=== PATIENT | male | born 1940 | race African-American/Black ===

== ENCOUNTER 2017-07-25 12:00 | Inpatient (IN) | payer OTHER ==
[~2017-07-25] VITALS: Ht 182.9 cm; Wt 87.0 kg
[2017-07-25] VITALS (17 sets, daily range): BP systolic 76–118; BP diastolic 38–67
--- NOTE | ~2017-07-25 | HC ---
[facility] [place] [address] CONSULTATION Name: SAI REGALADO Room #: 246-P [facility] IN M.R.#: [id number] Admission: 07/25/17 Attend Phys: Nabeel Mae Discharge: Date of : 38 Report #: [id number] THIS REPORT FOR: //name// CC: FAM unknown Nabeel Mae TYPE OF REPORT: Infectious disease consultation. REASON FOR CONSULTATION: I was asked to evaluate concerning left pyelonephritis. HISTORY OF PRESENT ILLNESS: The patient was a 77-year old who presented to the Emergency Room with lower back pain. He does have an ileal conduit. Has a nephrostomy tube that is longstanding since January of 2009 after surgery for bladder cancer. At that time, he had an ileal conduit placed. On presentation, he had sepsis with hypotension, required 3 liters of normal saline resuscitation. His left nephrostomy tube was changed by Interventional Radiology. He is now in the Intensive Care Unit, alert and cooperative. He still has some abdominal discomfort but feels better than he did prior to coming in. REVIEW OF SYSTEMS: He has had some right-sided discomfort, cough, loose stool for 3 days. ALLERGIES: TERAZOSIN and TESTOSTERONE. MEDICATIONS: As noted on his MAR, which were reviewed. He did receive a dose of vancomycin, Zosyn and Levaquin in the Emergency Room. PAST MEDICAL HISTORY: Hyperlipidemia, hypertension, seizure disorder, hypothyroidism, gastroesophageal reflux, COPD, bladder cancer, rheumatoid arthritis, hypogonadism, prostatectomy, right total shoulder arthroplasty, appendectomy, left nephrostomy and urostomy. FAMILY HISTORY: Noncontributory. SOCIAL HISTORY: Smoker of cigarettes. No significant alcohol intake. REVIEW OF SYSTEMS: Noted above. PHYSICAL EXAMINATION: VITAL SIGNS: Temperature is 100.7, pulse 58, blood pressure 100/56, MAP of 70 and O2 at 2 liters per nasal cannula. Urine output more than 50 mL an hour. HEENT: Hard of hearing, greatest on the left. NECK: Supple. LUNGS: Clear. HEART: Regular. [facility] [address] [place] [address] CONSULTATION Name: [facility] Room #: [address] [place] [address] IN .R.#: [id number] Admission: 07/25/17 Attend Phys: Nabeel Mae Discharge: Date of : 38 Report #: [id number] ABDOMEN: Soft with unremarkable urostomy and clear urine. Left nephrostomy tube in place with small amount of urine in the bag. EXTREMITIES: Unremarkable. LABORATORY STUDIES: Hemoglobin 9.2; WBC 15 and platelet count 253,000. Sodium 143, potassium 4.1, bicarbonate 28 and creatinine 1.2. Differential unremarkable. Lactate 0.8 and prolactin 0.05. Urinalysis, moderate wbc's, moderate rbc's and no bacteria seen. I do not have a culture from the left nephrostomy from the left kidney collecting duct. Blood cultures are pending. Urine culture pending. IMPRESSION AND RECOMMENDATIONS: A 77-year old with septic shock related to infected left nephrostomy tube. He has responded to IV fluids. Renal function remained stable. He has a leukocytosis. Mental status has stabilized. He has underlying bladder cancer, status post prostatectomy and bladder resection with a urostomy in place. We would recommend continuing broad antibiotic coverage, pending cultures. Continue IV fluids and full support. <ELECTRONICALLY SIGNED> By: Rafa Jimenes MD 07/26/17 1015 2056 2256 Rafa Jimenes MD /nt
[~2017-07-25 12:00] MED LIST: ACETAMINOPHEN-1 EAC1 PO; ALENDRONATE SOD70 MG PO; ASPIR 8181 MG PO; CALICUM 500+D1 EACH PO; CARVEDILOL12.5 MG PO; COREG6.25 MG PO; CORTISONE ACETA25 MG PO; HYDROCORTISONE PO; KEPPRA 500 MG500 M2 PO; KRISTALOSE10 GM PO; LASIX 20 MG TAB20 MG PO; LEVOTHYROXIN0.075 MG PO; LISINOPRIL2.5 MG PO; NEURONTIN 300300 M1 PO; OMEPRAZOLE 20 M20 M1 PO; OMEPRAZOLE40 MG PO; PROAIR HFA8.5 GM INH; TESTOSTERONE2.5 GM TOP
[2017-07-25 13:00] LABS: ABSOLUTE NEUTROPHILS 8.9 thou/uL (1.4-8.2); BASOPHILS 0.2 % (0.0-2.0); EOSINOPHILS 0.7 % (0.0-3.0); HEMATOCRIT 30.7 % (42.0-52.0); HEMOGLOBIN 10.5 gm/dL (14.0-18.0); MCH 27.5 pg (26.0-34.0); MCV 80.9 fL (80.0-100.0); PLATELET COUNT 292 thou/uL (150-400); POLYS 68.1 % (36.0-66.0); RBC 3.79 mil/uL (4.50-6.00); RDW 15.6 % (10.5-14.5); WBC 13.1 thou/uL (4.0-11.0)
[2017-07-25 13:01] LABS: MANUAL DIFF NO
[2017-07-25 13:11] LABS: CALCIUM 8.5 mg/dL (8.5-10.1); CREATININE 1.3 mg/dL (0.7-1.3); POTASSIUM 3.5 mmol/L (3.5-5.1)
[2017-07-25 13:13] LABS: URINE BILIRUBIN 2+ (Negative); URINE BLOOD 3+ (Negative); URINE GLUCOSE-RANDOM* NEGATIVE (Negative); URINE KETONES NEGATIVE (Negative); URINE NITRITE POSITIVE (Negative); URINE SPECIFIC GRAVITY 1.015 (1.005-1.035); URINE UROBILINOGEN 0.2 E.U./dl (0.2-1.0)
[2017-07-25 13:17] LABS: URINE COLOR BROWN
[2017-07-25 13:18] LABS: ICTOTEST (BILI CONFIRMATORY) Positive (Negative)
[2017-07-25 13:19] LABS: ALBUMIN 2.8 g/dL (3.4-5.0); TOTAL BILIRUBIN 0.5 mg/dL (<0.1-1.0); TOTAL PROTEIN 6.4 g/dL (6.4-8.2)
[2017-07-25 13:22] LABS: CASTS None Seen /LPF (None Seen); CRYSTALS None Seen /LPF (None Seen); SQUAMOUS 0-3 Few /LPF (0-3); TRANSITIONAL EPITHEL CELL 0-3 Few /LPF (None Seen)
[2017-07-25 13:23] LABS: BACTERIA None Seen /HPF (None Seen)
[2017-07-25 13:24] LABS: SSA (PROTEIN CONFIRMATORY) 3+ (APPROX. 200-500) mg/dL (Negative); URINE PROTEIN (DIPSTICK) 3+ (Negative)
[2017-07-25 14:26] LABS: APTT 37.5 Seconds (24.5-32.8); INR 1.1
[2017-07-25 19:37] LABS: ABSOLUTE NEUTROPHILS 12.2 thou/uL (1.4-8.2); BASOPHILS 0.4 % (0.0-2.0); EOSINOPHILS 0.2 % (0.0-3.0); HEMATOCRIT 29.7 % (42.0-52.0); HEMOGLOBIN 9.8 gm/dL (14.0-18.0); LYMPHOCYTES 15.7 % (24.0-44.0); MCH 27.1 pg (26.0-34.0); MONOCYTES 6.3 % (1.0-8.0); PLATELET COUNT 293 thou/uL (150-400); POLYS 77.4 % (36.0-66.0); RBC 3.62 mil/uL (4.50-6.00); RDW 15.8 % (10.5-14.5); WBC 15.8 thou/uL (4.0-11.0)
[2017-07-25 19:39] LABS: MANUAL DIFF NO
[2017-07-25 19:40] LABS: CALCIUM 7.4 mg/dL (8.5-10.1); CREATININE 1.2 mg/dL (0.7-1.3); POTASSIUM 4.1 mmol/L (3.5-5.1)
[2017-07-25 20:46] LABS: HEMATOCRIT 26.7 % (42.0-52.0); HEMOGLOBIN 9.2 gm/dL (14.0-18.0); MCH 27.9 pg (26.0-34.0); MCHC 34.3 g/dL (28.0-37.0); MCV 81.3 fL (80.0-100.0); RBC 3.29 mil/uL (4.50-6.00); RDW 15.8 % (10.5-14.5)
[2017-07-25 20:57] LABS: CALCIUM 7.2 mg/dL (8.5-10.1); CREATININE 1.2 mg/dL (0.7-1.3); POTASSIUM 4.2 mmol/L (3.5-5.1)
[2017-07-26] VITALS (10 sets, daily range): BP systolic 115–158; BP diastolic 53–88
[2017-07-26 01:07] LABS: CREATININE 1.1 mg/dL (0.7-1.3)
[2017-07-26 04:13] LABS: ABSOLUTE NEUTROPHILS 9.3 thou/uL (1.4-8.2); BASOPHILS 0.7 % (0.0-2.0); EOSINOPHILS 0.1 % (0.0-3.0); HEMATOCRIT 22.1 % (42.0-52.0); HEMOGLOBIN 7.4 gm/dL (14.0-18.0); LYMPHOCYTES 14.5 % (24.0-44.0); MCH 27.6 pg (26.0-34.0); MCHC 33.7 g/dL (28.0-37.0); MCV 81.9 fL (80.0-100.0); MONOCYTES 2.9 % (1.0-8.0); PLATELET COUNT 210 thou/uL (150-400); POLYS 81.8 % (36.0-66.0); RDW 15.7 % (10.5-14.5); WBC 11.3 thou/uL (4.0-11.0)
[2017-07-26 04:16] LABS: MANUAL DIFF NO
[2017-07-26 04:28] LABS: CREATININE 0.9 mg/dL (0.7-1.3); POTASSIUM 3.3 mmol/L (3.5-5.1)
[2017-07-26 04:33] LABS: CALCIUM 5.8 mg/dL (8.5-10.1)
[2017-07-27 02:33] LABS: HEMATOCRIT 28.1 % (42.0-52.0); MCH 27.2 pg (26.0-34.0); MCHC 33.4 g/dL (28.0-37.0); MCV 81.4 fL (80.0-100.0); RBC 3.45 mil/uL (4.50-6.00); RDW 15.3 % (10.5-14.5); WBC 15.7 thou/uL (4.0-11.0)
[2017-07-27 02:39] LABS: HEMOGLOBIN 9.4 gm/dL (14.0-18.0); MANUAL DIFF YES; PLATELET COUNT 287 thou/uL (150-400)
[2017-07-27 02:48] LABS: ALBUMIN 2.6 g/dL (3.4-5.0); CALCIUM 7.2 mg/dL (8.5-10.1); CREATININE 1.3 mg/dL (0.7-1.3); PHOSPHORUS 2.1 mg/dL (2.5-4.9); POTASSIUM 3.4 mmol/L (3.5-5.1)
[2017-07-27 03:05] VITALS: BP 144/93
[2017-07-27 05:34] LABS: ABSOLUTE NEUTROPHILS 12.6 thou/uL (1.4-8.2); ANISOCYTOSIS 1+; MYELOCYTES 1 %; TARGET CELLS OCCASIONAL; TOTAL CELL COUNT 100
[2017-07-27 08:02] VITALS: BP 152/91
[2017-07-27 15:43] VITALS: BP 142/85
[2017-07-27 19:52] VITALS: BP 117/93
[2017-07-28 04:00] VITALS: BP 133/85
[2017-07-28 07:18] VITALS: BP 128/83
[2017-07-28 11:15] VITALS: BP 128/90
[2017-07-28 15:10] VITALS: BP 133/83
[2017-07-28 19:40] VITALS: BP 128/82
[2017-07-29 04:52] VITALS: BP 138/82
[2017-07-29 05:54] LABS: HEMATOCRIT 24.7 % (42.0-52.0); HEMOGLOBIN 8.5 gm/dL (14.0-18.0); MCH 27.6 pg (26.0-34.0); MCHC 34.3 g/dL (28.0-37.0); MCV 80.4 fL (80.0-100.0); RBC 3.07 mil/uL (4.50-6.00); RDW 15.6 % (10.5-14.5); WBC 9.1 thou/uL (4.0-11.0)
[2017-07-29 06:07] LABS: ALBUMIN 2.3 g/dL (3.4-5.0); CALCIUM 7.3 mg/dL (8.5-10.1); CREATININE 1.3 mg/dL (0.7-1.3); MAGNESIUM 2.1 mg/dL (1.8-2.4); PHOSPHORUS 2.3 mg/dL (2.5-4.9); POTASSIUM 3.1 mmol/L (3.5-5.1)
[2017-07-29 06:41] LABS: TSH 0.087 uIU/mL (0.358-3.740)
[2017-07-29 08:04] VITALS: BP 133/79
[2017-07-29] MEDS ORDERED: LEVAQUIN 500 M500 M2 PO (09:15)
[2017-07-29 10:12] VITALS: BP 133/79
[2017-07-29 14:18] VITALS: BP 133/79
[2017-07-29 22:07] LABS: 25-HYDROXY TOTAL 30.1 ng/mL (30.0-100.0)
== END 2017-07-29 17:16 | disposition home health service (06) | DRG 871 ==
LOC: ER 12:00 → ICU 13:21 → EROBS 13:21 → ICU 15:29 → 2N 07-26 13:09
PROVIDERS: Hospitalist; Physician Assistant; Registered Nurse
PROC: 0T25X0Z Change Drainage Device in Kidney, External Approach (ICD-10-PCS; principal; 2017-07-25)
PROC: 05H933Z Insertion of Infusion Device into Right Brachial Vein, Percutaneous Approach (ICD-10-PCS; 2017-07-25)
DX: A41.9 Sepsis, unspecified organism (principal); R65.21 Severe sepsis with septic shock; J18.9 Pneumonia, unspecified organism; N12 Tubulo-interstitial nephritis, not specified as acute or chronic; F10.231 Alcohol dependence with withdrawal delirium; N39.0 Urinary tract infection, site not specified; E78.5 Hyperlipidemia, unspecified; I10 Essential (primary) hypertension; E03.9 Hypothyroidism, unspecified; K21.9 Gastro-esophageal reflux disease without esophagitis; J44.9 Chronic obstructive pulmonary disease, unspecified; M06.9 Rheumatoid arthritis, unspecified; F17.210 Nicotine dependence, cigarettes, uncomplicated; G40.909 Epilepsy, unspecified, not intractable, without status epilepticus; Z96.611 Presence of right artificial shoulder joint; E86.0 Dehydration; Z74.2 Need for assistance at home and no other household member able to render care; N13.5 Crossing vessel and stricture of ureter without hydronephrosis; Z79.52 Long term (current) use of systemic steroids; Z85.51 Personal history of malignant neoplasm of bladder; Z90.49 Acquired absence of other specified parts of digestive tract; Z93.6 Other artificial openings of urinary tract status; Z88.8 Allergy status to other drugs, medicaments and biological substances
CPT/HCPCS: 10078; 10081; 27000

== ENCOUNTER 2017-08-06 17:57 | Inpatient (IN) | payer OTHER ==
[~2017-08-06] VITALS: Ht 182.9 cm; Wt 83.6 kg
--- NOTE | ~2017-08-06 | HC ---
[facility] [place] [address] CONSULTATION Name: SAI REGALADO Room #: 424-P [facility] IN ..#: [id number] Admission: 08/06/17 Attend Phys: Dustin Chin MD Discharge: Date of : 38 Report #: [id number] THIS REPORT FOR: //name// CC: Zeb Chin DATE OF SERVICE: 08/07/2017 CARDIOLOGY CONSULTATION PRIMARY CARE PHYSICIAN: Dr. Zeb Mckeon in [place], [place]. HISTORY OF PRESENT ILLNESS: The patient is a 77-year-old single black male who I was asked to see in the hospital today after he was noted to have swelling of both feet. The patient is extremely hard of hearing, is difficult to communicate with. There are no family members available. The patient has been followed by my partner, Dr. Hebert. He had a heart catheterization here at [facility] in [address] Avila that showed an ejection fraction of only 25% with minimal coronary artery disease consistent with a nonischemic cardiomyopathy. Recently, he has been followed at the [facility]. He has a history of bladder cancer and had previous removal of his bladder. He has a urinary drain in place. He also has a drain from his left kidney percutaneously. The patient was actually just admitted here to [facility] on 07/25. He complained of abdominal discomfort and back pain. After he was admitted, he underwent extensive evaluation. He was just discharged 10 days ago. He was found to have evidence of pyelonephritis, underwent nephrostomy replacement, was felt to be dehydrated. He eventually was discharged home with home health. He has chronic dyspnea on exertion. He is not very active because of age and rheumatoid arthritis. Recently, he has had increasing swelling of both feet. Yesterday, the home health nurse recommended he go to the Emergency Room to be admitted. He does note some pain in his legs. He has occasional sharp chest pain. He denied any palpitations or recent syncope. PAST MEDICAL HISTORY: Otherwise significant for removal of a pituitary gland tumor at [facility]. He has a history of hypertension, but no history of diabetes. He has had previous shoulder surgery, cataract extraction, rheumatoid arthritis. CURRENT MEDICATIONS: Consists of lisinopril, Lasix, carvedilol, Neurontin, Keppra, cortisone. He is on albuterol inhaler, Synthroid, testosterone, aspirin. ALLERGIES: HE HAS INTOLERANCE TO TERAZOSIN. [facility] [address] [place] [address] CONSULTATION Name: SAI REGALADO Room #: 424-P [facility] IN [facility]#: [id number] Admission: 08/06/17 Attend Phys: Dustin Chin MD Discharge: Date of : 38 Report #: [id number] FAMILY HISTORY: Negative for heart disease. SOCIAL HISTORY: He is . Lives with daughter in [place], [place]. 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 Smokes less than half pack of cigarettes a day. No alcohol abuse. REVIEW OF SYSTEMS: He has had no history of stroke. He does have COPD, he is on chronic oxygen. No history of peptic ulcer. No liver disease. He has rheumatoid arthritis with deformity of his hands. No chronic skin condition. No psychiatric illness. PHYSICAL EXAMINATION: GENERAL: Revealed an elderly, frail-appearing male lying in bed. He appeared in no acute distress. VITAL SIGNS: He had a blood pressure of 120/70, pulse 70, he is afebrile. HEENT: He is anicteric. Conjunctivae pink. Mucous membranes appear moist. NECK: Veins appeared mildly distended. CHEST: ____ decreased breath sounds at the bases. CARDIOVASCULAR: Regular rate and rhythm. No significant murmur. ABDOMEN: Soft. EXTREMITIES: Had pitting edema up to the mid tibial area. Dorsalis pedis pulse could not be palpated. SKIN: Cool and dry. NEUROLOGIC: Nonfocal. LYMPH: No adenopathy. MUSCULOSKELETAL: He had deformity of the metacarpophalangeal joints of both hands consistent with a swan neck deformity. There is no ECG in his chart at this time. His workup in the Emergency Room, sodium is 146, potassium 3.4, BUN 9, creatinine 0.6. His troponin 0.07. BNP 22,168. His white blood cell count 7.0, hemoglobin 10.2. He had an echocardiogram done in August of this year that showed ejection fraction 35% with dilated right atrium and right ventricle, left atrium was dilated, moderate mitral regurgitation. His x-rays last night, he had a portable chest x-ray that showed normal heart size, blunting of the right costophrenic angle. CT scan of the head without contrast done 2 weeks ago showed a mass in the sella. IMPRESSION AND RECOMMENDATIONS: 1. Venous insufficiency. Recommend intravenous diuretics. 2. Previous removal of a pituitary adenoma. 3. Seizures. 4. History of bladder cancer with previous nephrostomy tube. 5. Rheumatoid arthritis. 6. Microcytic anemia. 7. Hard of hearing. [facility] [address] [place] [address] CONSULTATION Name: BLANK,WILL H Room #: 424-P ADM IN M.R.#: [id number] Admission: 08/06/17 Attend Phys: Dustin Chin MD Discharge: Date of : 38 Report #: [id number] 8. Nonischemic cardiomyopathy. The patient is on a beta renuka and HUEY inhibitor. I would recommend adding spironolactone. <ELECTRONICALLY SIGNED> By: Zeb Manzanares MD, FACC 08/09/17 1459 0731 1328 Zeb Manzanares MD, FACC /nt
--- NOTE | ~2017-08-06 | EKG ---
[place] [address] [facility] [place] [address] ELECTROCARDIOGRAM REPORT Name: SAI REGALADO Room #: 424-P ADM IN M.R.#: [id number] Admission: 08/06/17 Attend Phys: Dustin Chin MD Discharge: Date of : 38 Report #: [id number] THIS REPORT FOR: //name// [facility] Test Date: 2017-08-09 Test Time: 12:17:26 Pat Name: SAI REGALADO Department: Room: 424 P Gender: M Parts Cleaner: yaron : 1940 Requested By: Zeb Manzanares Order Number: [id number] MD: Broderick Harris Measurements Intervals [place] Rate: 66 P: 39 AR: 151 QRS: -28 QRSD: 95 T: 199 QT: 540 QTc: 566 Interpretive Statements Sinus rhythm Atrial premature complexes Borderline left axis deviation Abnormal R-wave progression, late transition Abnrm T, consider ischemia, anterolateral lds Prolonged QT interval no previous ECGs available for comparison Electronically Signed On 08-09-2017 14:35:56 CUSTODIAN MANAGER by Broderick Harris [email or web address] <ELECTRONICALLY SIGNED> By: Broderick Harris MD, [facility] 08/09/17 1435 1217 1217 Broderick Harris MD, [facility] /EPI
--- NOTE | ~2017-08-06 | EKG ---
[place] [address] [address] [place] [address] ELECTROCARDIOGRAM REPORT Name: SAI REGALADO Room #: 424-P ADM IN M.R.#: [id number] Admission: 08/06/17 Attend Phys: Dustin Chin MD Discharge: Date of : 38 Report #: [id number] THIS REPORT FOR: //name// [facility] Test Date: 2017-08-08 Test Time: 08:41:07 Pat Name: SAI REGALADO Department: Room: 424 P Gender: M Occupational Therapist'S Assistant: JULIETH : 1940 Requested By: Zeb Manzanares Order Number: [id number] MD: Broderick Harris Measurements Intervals [place] Rate: 53 P: -68 CO: 109 QRS: -20 QRSD: 97 T: 169 QT: 644 QTc: 605 Interpretive Statements Sinus bradycardia ventricular premature complexes Short CO interval Borderline left axis deviation Repol abnrm, prob ischemia, anterolateral lds Prolonged QT interval No previous ECGs available for comparison Electronically Signed On 08-09-2017 14:16:38 B2B OUTSIDE SALES REPRESENTATIVE by Broderick Harris [email or web address] <ELECTRONICALLY SIGNED> By: Broderick Harris MD, [facility] 08/09/17 1416 0841 0841 Broderick Harris MD, [facility] /EPI
--- NOTE | ~2017-08-06 | EKG ---
[place] [address] [facility] [place] [address] ELECTROCARDIOGRAM REPORT Name: SAI REGALADO Room #: 424-P ADM IN M.R.#: [id number] Admission: 08/06/17 Attend Phys: Dustin Chin MD Discharge: Date of : 38 Report #: [id number] THIS REPORT FOR: //name// [facility] ED Test Date: 2017-08-06 Test Time: 18:27:43 Pat Name: SAI REGALADO Department: Room: [facility] Gender: M Technical Asst: SIERRA : 1940 Requested By: Carly Pena Order Number: [id number] MD: Broderick Harris Measurements Intervals [place] Rate: 104 P: [place]: QRS: 32 QRSD: 90 T: 165 QT: 447 QTc: 588 Interpretive Statements Possible sinus rhythm ventricular premature complexes Low voltage, extremity leads Abnormal R-wave progression, late transition Repol abnrm suggests ischemia, anterolateral Prolonged QT interval Compared to ECG 09/07/2016 00:06:20 Ventricular premature complex(es) now present Electronically Signed On 08-07-2017 9:05:04 CLAIMS ADJUSTER SUPERVISOR by Broderick Harris [email or web address] <ELECTRONICALLY SIGNED> By: Broderick Harris MD, [facility] 08/07/17 0905 1827 182 Broderick Harris MD, [facility] /EPI
--- NOTE | ~2017-08-06 | 2DMMODE ---
[facility] [address] [place] [address] 2 D/M-MODE ECHOCARDIOGRAM Name: SAI REGALADO Room #: 424-P [facility] IN ..#: [id number] Admission: 08/06/17 Attend Phys: Dustin hCin, Discharge: Date of : 38 Date of Service: 08/07/17 1513 Report #: [id number] THIS REPORT FOR: //name// APPROVED REPORT Study performed: 08/07/2017 08:16:54 EXAM: Comprehensive 2D, Doppler, and color-flow Echocardiogram Patient Location: Echo lab Room #: [facility] Status: routine BSA: 2.06 HR: 100 bpm BP: 101/64 mmHg Rhythm: Irregular/PVCs Other Information Study Quality: Adequate Indications Leg edema, history of CHF. Hx: COPD 2D Dimensions RVDd: 45.03 mm LVEF(%): 32.53 (>50%) IVSd: 11.14 (7-11mm) LVOT Diam: 21.55 (18-24mm) LVDd: 58.60 mm PWd: 8.35 (7-11mm) Ascending Ao: 33.15 (22-36mm) LVDs: 49.42 (25-40mm) Aortic Root: 35.71 mm Fernandez's LVEF: 32.53 % Volumes Left Atrial Volume (Systole) Single Plane 4CH: 88.66 mL Single Plane 2CH: 93.45 mL LA ESV Index: 50.00 mL/m2 Aortic Valve AoV Peak Chris.: 1.20 m/s AO Peak Gr.: 5.90 mmHg LVOT Max P.47 mmHg LVOT Max V: 0.60 m/s YUAN Vmax: 1.83 cm2 Pulmonary Valve PV Peak Chris.: 0.65 m/s PV Peak Gr.: 1.67 mmHg [facility] [address] [place] [address] 2 D/M-MODE ECHOCARDIOGRAM Name: [facility] Room #: 424-P [facility] IN ..#: [id number] Admission: 08/06/17 Attend Phys: Dustin Chin, Discharge: Date of : 38 Date of Service: 08/07/17 1513 Report #: [id number] Tricuspid Valve TR Peak Chris.: 3.00 m/s RAP Estimate: 5.00 mmHg TR Peak Gr.: 36.56 mmHg PA Pressure: 42.00 mmHg Left Ventricle Left ventricle is mildly dilated. Paradoxical septal motion consistent with conduction abnormality. There is normal left ventricular wall thickness. Left ventricular systolic function is severely decreased. LVEF is 30-35%. This study is not technically sufficient to allow evaluation of the LV diastolic function. Right Ventricle Right ventricle is dilated. Right ventricle is hypokinetic. Atria Left atrium is severely dilated. Right atrium is mildly dilated. Aortic Valve The Aortic valve is mildly sclerotic. Trace aortic regurgitation. There is no aortic valvular stenosis. Mitral Valve Mitral valve leaflets are mildly thickened. Moderate mitral regurgitation. Tricuspid Valve The tricuspid valve is normal in structure. Mild to moderate tricuspid regurgitation. Estimated PAP is 50 mmHg. Pulmonic Valve The pulmonary valve is normal in structure. Mild pulmonic regurgitation. Great Vessels The aortic root is normal in size. The ascending aorta is normal in size. IVC is normal in size and collapses >50% with inspiration. Pericardium There is no pericardial effusion. <Conclusion> LVEF is 30-35%. [facility] [address] [place] [address] 2 D/M-MODE ECHOCARDIOGRAM Name: [facility] Room #: 424-P [facility] IN ..#: [id number] Admission: 08/06/17 Attend Phys: Dustin Chin, Discharge: Date of : 38 Date of Service: 08/07/171512 Report #: [id number] Right ventricle is dilated. Left atrium is severely dilated. Right atrium is mildly dilated. Moderate mitral regurgitation. Mild to moderate tricuspid regurgitation. Estimated PAP is 50 mmHg. <ELECTRONICALLY SIGNED> By: Zeb Manzanares MD, [facility] 08/07/17 1513 12 1513 Zeb Manzanares MD, FACC /INF
[~2017-08-06 17:57] MED LIST changes: +LEVAQUIN 500 M500 M2 PO
[2017-08-06 17:58] VITALS: BP 138/44
[2017-08-06 18:38] LABS: ABSOLUTE NEUTROPHILS 4.2 thou/uL (1.4-8.2); BASOPHILS 0.6 % (0.0-2.0); EOSINOPHILS 0.4 % (0.0-3.0); HEMATOCRIT 29.9 % (42.0-52.0); HEMOGLOBIN 10.2 gm/dL (14.0-18.0); LYMPHOCYTES 30.1 % (24.0-44.0); MCH 28.3 pg (26.0-34.0); MCHC 34.3 g/dL (28.0-37.0); MCV 82.5 fL (80.0-100.0); PLATELET COUNT 282 thou/uL (150-400); POLYS 59.9 % (36.0-66.0); RBC 3.62 mil/uL (4.50-6.00); RDW 16.5 % (10.5-14.5)
[2017-08-06 18:44] LABS: CALCIUM 8.7 mg/dL (8.5-10.1); CREATININE 1.6 mg/dL (0.7-1.3); POTASSIUM 3.1 mmol/L (3.5-5.1)
[2017-08-06 18:47] LABS: APTT 31.8 Seconds (24.5-32.8); INR 1.2; PROTIME 12.3 Seconds (9.3-11.4)
[2017-08-06 18:52] LABS: TROPONIN-I 0.07 ng/mL (<0.06)
[2017-08-06 19:54] LABS: URINE BILIRUBIN NEGATIVE (Negative); URINE BLOOD NEGATIVE (Negative); URINE CLARITY CLEAR; URINE COLOR YELLOW; URINE GLUCOSE-RANDOM* NEGATIVE (Negative); URINE KETONES NEGATIVE (Negative); URINE LEUKOCYTES-REFLEX NEGATIVE (Negative); URINE NITRITE-REFLEX NEGATIVE (Negative); URINE PROTEIN (DIPSTICK) NEGATIVE (Negative); URINE SPECIFIC GRAVITY <= 1.005 (1.005-1.035); URINE UROBILINOGEN 0.2 E.U./dl (0.2-1.0)
[2017-08-06 21:10] VITALS: BP 111/65
[2017-08-06 21:58] VITALS: BP 128/70
[2017-08-07 00:56] LABS: CALCIUM 8.5 mg/dL (8.5-10.1); CREATININE 1.6 mg/dL (0.7-1.3); MAGNESIUM 1.7 mg/dL (1.8-2.4); POTASSIUM 3.4 mmol/L (3.5-5.1)
[2017-08-07 06:01] VITALS: BP 101/64
[2017-08-07 07:38] VITALS: BP 115/64
[2017-08-07 15:10] VITALS: BP 93/63
[2017-08-07 16:38] VITALS: BP 93/63
[2017-08-07 20:02] VITALS: BP 101/64
[2017-08-08 02:04] VITALS: BP 119/59
[2017-08-08 02:40] LABS: ALBUMIN 2.9 g/dL (3.4-5.0); ANION GAP < 0 mmol/L (7-16); BUN 12 mg/dL (7-18); CALCIUM 8.9 mg/dL (8.5-10.1); CHLORIDE 97 mmol/L (98-107); CREATININE 1.8 mg/dL (0.7-1.3); GLUCOSE 87 mg/dL (74-106); SGOT 31 U/L (15-37); SGPT 27 U/L (30-65); SODIUM 141 mmol/L (136-145); TOTAL BILIRUBIN 0.5 mg/dL (<0.1-1.0); TOTAL PROTEIN 6.3 g/dL (6.4-8.2)
[2017-08-08 02:42] LABS: CO2 45 mmol/L (21-32)
[2017-08-08 07:47] VITALS: BP 125/65
[2017-08-08 15:21] VITALS: BP 93/51
[2017-08-08 20:03] VITALS: BP 101/47
[2017-08-09 04:24] VITALS: BP 103/53
[2017-08-09 08:35] VITALS: BP 120/61
[2017-08-09 12:45] LABS: CREATININE 1.8 mg/dL (0.7-1.3); MAGNESIUM 1.9 mg/dL (1.8-2.4); POTASSIUM 4.5 mmol/L (3.5-5.1)
[2017-08-09 15:35] LABS: HEMATOCRIT 34.2 % (42.0-52.0); HEMOGLOBIN 11.5 gm/dL (14.0-18.0); MCHC 33.7 g/dL (28.0-37.0); MCV 83.3 fL (80.0-100.0); RBC 4.1 mil/uL (4.50-6.00); RDW 17.9 % (10.5-14.5)
[2017-08-09 16:03] VITALS: BP 96/56
[2017-08-09 19:55] VITALS: BP 131/51
[2017-08-09 23:45] VITALS: BP 124/67
[2017-08-10 03:12] VITALS: BP 105/73
[2017-08-10 09:10] VITALS: BP 110/70
[2017-08-10 14:20] VITALS: BP 120/67
[2017-08-10 20:02] VITALS: BP 128/70
[2017-08-11 04:21] VITALS: BP 132/73
[2017-08-11 07:04] LABS: HEMOGLOBIN 11.1 gm/dL (14.0-18.0); WBC 6.9 thou/uL (4.0-11.0)
[2017-08-11 07:06] LABS: HEMATOCRIT 34.1 % (42.0-52.0); MCH 27.4 pg (26.0-34.0); MCHC 32.6 g/dL (28.0-37.0); PLATELET COUNT 328 thou/uL (150-400); RBC 4.06 mil/uL (4.50-6.00); RDW 17.7 % (10.5-14.5)
[2017-08-11 07:23] LABS: ALBUMIN 3.8 g/dL (3.4-5.0); CALCIUM 9.1 mg/dL (8.5-10.1); POTASSIUM 5.6 mmol/L (3.5-5.1); TOTAL BILIRUBIN 0.7 mg/dL (<0.1-1.0); TOTAL PROTEIN 7.3 g/dL (6.4-8.2)
[2017-08-11 09:40] VITALS: BP 107/58
[2017-08-11 12:06] LABS: ABSOLUTE NEUTROPHILS 2.6 thou/uL (1.4-8.2); TARGET CELLS 2+
[2017-08-11 12:07] LABS: ANISOCYTOSIS 1+; POIKILOCYTOSIS 1+
[2017-08-11 16:00] VITALS: BP 95/46
[2017-08-11 17:46] VITALS: BP 95/46
== END 2017-08-11 18:00 | disposition home health service (06) | DRG 291 ==
LOC: ER 17:57 → EROBS 19:46 → 4E 19:46
PROVIDERS: Emergency Medicine; Internal Medicine; Internal Medicine Cardiovascular Disease; Nurse Practitioner Acute Care; Nurse Practitioner Family
PROC: B24BZZ4 Ultrasonography of Heart with Aorta, Transesophageal (ICD-10-PCS; principal; 2017-08-07)
DX: I13.0 Hypertensive heart and chronic kidney disease with heart failure and stage 1 through stage 4 chronic kidney disease, or unspecified chronic kidney disease (principal); I50.23 Acute on chronic systolic (congestive) heart failure; N17.9 Acute kidney failure, unspecified; I47.2 Ventricular tachycardia; E46 Unspecified protein-calorie malnutrition; I42.9 Cardiomyopathy, unspecified; N18.3 Chronic kidney disease, stage 3 (moderate); M62.84 Sarcopenia; E87.5 Hyperkalemia; E87.6 Hypokalemia; I48.91 Unspecified atrial fibrillation; J44.9 Chronic obstructive pulmonary disease, unspecified; E03.9 Hypothyroidism, unspecified; E78.5 Hyperlipidemia, unspecified; I25.10 Atherosclerotic heart disease of native coronary artery without angina pectoris; D50.9 Iron deficiency anemia, unspecified; H91.90 Unspecified hearing loss, unspecified ear; G40.909 Epilepsy, unspecified, not intractable, without status epilepticus; K21.9 Gastro-esophageal reflux disease without esophagitis; M06.9 Rheumatoid arthritis, unspecified; F17.210 Nicotine dependence, cigarettes, uncomplicated; Z93.6 Other artificial openings of urinary tract status; Z90.49 Acquired absence of other specified parts of digestive tract; Z68.25 Body mass index [BMI] 25.0-25.9, adult; Z90.79 Acquired absence of other genital organ(s); Z85.51 Personal history of malignant neoplasm of bladder; Z79.82 Long term (current) use of aspirin; Z79.899 Other long term (current) drug therapy; Z88.8 Allergy status to other drugs, medicaments and biological substances
CPT/HCPCS: 10183

== ENCOUNTER → 2017-11-11 | Outpatient (CLI) | payer OTHER ==
[~2017-11-11] MED LIST changes: +DUONEB 2.5-0.5 M3 ML INH; +ENOXAPARIN40 MG/0.1 SUBQ; +KEPPRA 500 MG500 M1 PO; +MEROPENEM500 MG IV; +NYSTATIN100000 UNI SW&SWALLOW
== END ==
LOC: RAD 06:11 → SPEECH 06:11 → RAD 14:47
DX: J69.0 Pneumonitis due to inhalation of food and vomit (principal); R13.12 Dysphagia, oropharyngeal phase

== ENCOUNTER 2017-11-20 09:39 | Inpatient (IN) | payer OTHER ==
[2017-11-20] VITALS (27 sets, daily range): BP systolic 89–114; BP diastolic 35–76
[~2017-11-20] VITALS: Ht 182.9 cm; Wt 84.6 kg
--- NOTE | ~2017-11-20 | EKG ---
[address] [place] [address] ELECTROCARDIOGRAM REPORT Name: SAI REGALADO Room #: 170-4 ADM IN M.R.#: [id number] Admission: 11/20/17 Attend Phys: Román Gallagher MD Discharge: Date of : 38 Report #: [id number] THIS REPORT FOR: //name// [facility] ED Test Date: 2017-11-20 Test Time: 10:44:11 Pat Name: SAI REGALADO Department: Room: 170 Gender: M Life Sciences Manager: [employer] : 1940 Requested By: Terrie Bailey Order Number: [id number] MD: Adelso Owen Measurements Intervals [place] Rate: 71 P: [place]: QRS: 31 QRSD: 101 T: 180 QT: 409 QTc: 445 Interpretive Statements Normal sinus rhythm. Ventricular premature complex Borderline low voltage, extremity leads Repol abnrm suggests ischemia, anterolateral Compared to ECG 08/09/2017 12:17:26 Electronically Signed On 11-20-2017 14:03:57 CDT by Adelso Owen [email or web address] <ELECTRONICALLY SIGNED> By: Adelso Owen MD 11/20/17 1403 1044 1044 Adelso Owen MD /EPI
--- NOTE | ~2017-11-20 | HC ---
[facility] [place] [address] [facility] Room #: 244-P [facility] IN M.R.#: [id number] Admission: 11/20/17 Attend Phys: Román Gallagher MD Discharge: Date of : 38 Report #: [id number] THIS REPORT FOR: //name// CC: Román Perez REFERRAL PHYSICIAN: Román Gallagher MD REASON FOR REFERRAL: Severe sepsis. HISTORY OF PRESENT ILLNESS: The patient is a 77-year-old male who was brought to the Emergency Room with increasing dyspnea, febrile illness. Chest x-ray shows right-sided infiltrates. He was hypotensive. Pulmonary Critical Care consultation was requested. The patient was last hospitalized in 07/2017 for heart failure. He has numerous medical problems including COPD, chronic respiratory failure on O2, cardiomyopathy with ejection fraction of 38%, atrial fibrillation, hypertension and debility. Since last hospitalization, he was [facility] and subsequently home. His family cares for him. The patient is wheelchair bound. He was doing fairly well until 1-2 days prior to presentation, the patient had noticed increasing dyspnea, febrile illness. PAST MEDICAL HISTORY: As mentioned above. 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 PAST SURGICAL HISTORY: Status post right shoulder surgery, foot surgery, also as mentioned above. ALLERGIES: TERAZOSIN, REACTIONS NOT SPECIFIED; TESTOSTERONE, REACTIONS NOT SPECIFIED. HOME MEDICATIONS: Reviewed as in the MAR. He is also on ProAir 2 puffs p.r.n. His medications also include Coreg, omeprazole, Tylenol, Lasix, Zestril, Neurontin, Keppra, cortisone, Synthroid, testosterone ointment, aspirin, hydrocortisone 20 mg in the morning and 10 mg in the evening. FAMILY HISTORY: Noncontributory. [facility] [address] [place] [address] CONSULTATION Name: [facility] Room #: 244-P [facility] IN ..#: [id number] Admission: 11/20/17 Attend Phys: Román Gallagher MD Discharge: Date of : 38 Report #: [id number] SOCIAL HISTORY: Lives with his family. Tobacco history: He continues to smoke about 1 cigarette per day. Denies any alcohol use. REVIEW OF SYSTEMS: As mentioned above, otherwise is limited as the patient is not a good historian at present. PHYSICAL EXAMINATION: GENERAL: He is awake, appears somewhat somnolent. He is very hard of hearing. VITAL SIGNS: Temperature is 99.8 degrees Fahrenheit, pulse is 72, respiratory rate is 17, blood pressure is currently 100/46 mmHg, saturations 95%. Low blood pressure was measured at 85 mmHg systolic. HEENT: Normocephalic, atraumatic. NECK: Supple. No lymphadenopathy or thyromegaly. CHEST: Breath sounds are fair due to poor effort. Few scattered crackles in the bases. No obvious wheezes. CARDIOVASCULAR: Distant heart sounds. No obvious murmurs or gallop. Pulses are decreased at 1/4+ bilaterally. ABDOMEN: Soft, nontender, no organomegaly or masses felt. BACK: The lower back area is notable for nephrostomy tube in the left lower back area. GENITOURINARY: Deferred. RECTAL: Deferred. EXTREMITIES: There is no edema, cyanosis or clubbing. LABORATORY DATA: Chest x-ray as mentioned above showing patchy right lower lobe infiltrates. Influenza A and B is negative. Sodium 135, potassium 4.0, chloride 100, CO2 is 32, BUN is 28, creatinine is 2.1. Liver function profile is grossly unremarkable. WBC 21,300; hemoglobin 11.0; platelets are normal. No significant bandemia. Albumin 2.7. Arterial blood gas revealed pH 7.39, pCO2 of 42, pO2 of on 2-1/2 liters of O2. IMPRESSION: 1. Progressive dyspnea in this 77-year-old male. Chest x-ray shows infiltrates. He has a chronic nephrostomy tube. He has leukocytosis. Suspect the patient has pneumonia, possible aspiration. Cannot rule out urinary tract source. 2. Severe sepsis with hypotension, multisystem organ dysfunction. 3. Duoqc-ia-ctyfpta hypoxic respiratory failure. 4. Acute kidney injury/chronic kidney disease due to above. Suspect hypotension leading to an acute tubular necrosis. 5. Nonischemic cardiomyopathy, cardiac catheterization in 2015 showed mild coronary artery disease. Previous echocardiogram showed ejection fraction 35%. 6. Atrial fibrillation. 7. Chronic obstructive pulmonary disease with chronic hypoxic respiratory failure, on chronic O2 without obvious evidence of exacerbation. [facility] [address] [place] [address] CONSULTATION Name: BLANK,WILL H Room #: 244-P [facility] IN [place]m.#: [id number] Admission: 11/20/17 Attend Phys: Román Gallagher MD Discharge: Date of : 38 Report #: [id number] 8. Rheumatoid arthritis, on chronic steroids. 9. History of prostate cancer, status post prostatectomy. 10. History of bladder cancer, status post cystectomy along with ileal conduit. He also has a chronic obstructive left ureter with chronic left nephrostomy tube. This has been [facility] managed [facility] the [facility]. 11. Generalized debility and weakness, he has been a wheelchair bound for some time. 12. Tobacco abuse, smoking 1 cigarette a day. RECOMMENDATIONS: We would recommend severe sepsis protocol, broad spectrum antibiotics, IV fluid replacement, vasopressor to keep systolic around 90 mmHg or mean arterial blood pressure greater than 60-65 mmHg. DVT and GI prophylaxis will be addressed. With his history of chronic corticosteroids, the patient will need pulse steroid therapy. MEDICAL DIRECTIVE: He is a full code blue. Thank you for this consultation. <ELECTRONICALLY SIGNED> By: Ilir Samuel MD 11/23/17 1707 1439 04 Ilir Samuel MD /nt
--- NOTE | ~2017-11-20 | HC ---
[facility] [place] [address] CONSULTATION Name: FABRICIO Room #: 244-P [facility] IN M.R.#: [id number] Admission: 11/20/17 Attend Phys: Román Gallagher MD Discharge: Date of : 38 Report #: [id number] THIS REPORT FOR: //name// CC: Román Perez REASON FOR CONSULTATION: I was asked to evaluate concerning septic shock. HISTORY OF PRESENT ILLNESS: The patient was a 77-year-old, known history of bladder cancer and rheumatoid arthritis. He has an ileal conduit and also a left nephrostomy tube in place, longstanding. His last nephrostomy tube exchange was 3 weeks ago. He presents now with fever, chills, sweats, cough with light colored sputum and hemoptysis today. He has been anorexic. He presented himself to the Emergency Room where his blood pressure dropped in the 80s systolic. He had received IV fluids without improvement and is now on Levophed drip. He has had reasonable urine output. Cultures have been obtained from the urine and blood. He has had right-sided chest pain. No definite flank pain. No nausea, vomiting or diarrhea. No rash or decubiti. He was transported to the intensive care unit and is residing here with resolution of his fever and improvement of his hemodynamics. He lives with his family. Several of the grandkids have been sick with respiratory tract infection. He has had no trauma. He has had no other known exposures. REVIEW OF SYSTEMS: He has a right chest Port-A-Cath in place, longstanding. No dental issues. Otherwise as noted above. ALLERGIES: TERAZOSIN AND TESTOSTERONE. MEDICATIONS: As noted on his MAR, having been placed now on ciprofloxacin, fluconazole, Zosyn and vancomycin. PAST MEDICAL HISTORY: Hyperlipidemia, hypertension, seizure disorder, hypothyroidism, gastroesophageal reflux, COPD, bladder cancer, rheumatoid arthritis, hypogonadism, prostatectomy, right total shoulder arthroplasty, appendectomy, left nephrostomy and urostomy and bladder cancer. FAMILY HISTORY: Noncontributory. SOCIAL HISTORY: Smoker of cigarettes, remains on 2 liters of oxygen per nasal cannula at home. No significant alcohol intake. REVIEW OF SYSTEMS: As noted above. PHYSICAL EXAMINATION: VITAL SIGNS: He is afebrile, blood pressure 94/45 with a pulse of 75. [address] [address] CONSULTATION Name: [facility] Room #: [address] [place] [address] IN M.R.#: [id number] Admission: 11/20/17 Attend Phys: Román Gallagher MD Discharge: Date of : 38 Report #: [id number] GENERAL: He was alert and cooperative. Very hard of hearing. HEENT: Unremarkable otherwise. NECK: Supple. CHEST: Right chest Port-A-Cath site unremarkable. LUNGS: Few crackles in the right base posteriorly. No consolidation. No rub. HEART: Regular without murmur. ABDOMEN: Soft. Ileostomy site unremarkable. GENITOURINARY: Left flank nephrostomy tube unremarkable. Clear urine in both bags. EXTREMITIES: Unremarkable other than changes of rheumatoid arthritis. LABORATORY STUDIES: CT scan of the chest shows right lower lobe ____. Sodium 137, potassium 3.7, bicarbonate 29, creatinine 1.8, AST 20, bilirubin normal, alkaline phosphatase 36 and ALT 12. Lactate 1.1. INR 1.2. Hemoglobin 11, WBC 21.3, platelet count 232,000, 66% neutrophils and 3% bands. Procalcitonin 5. Urinalysis unclear where this was from for the reports says clean catch with the urinalysis showing rare wbc's and moderate bacteria. ABGs on 2.5 liters showed a pO2 of 58, pCO2 of 42, pH 7.39. Blood and urine are pending cultures. Chest x-ray, right mid and lower lobe infiltrates consistent with pneumonia. IMPRESSION: A 77-year-old with community-acquired pneumonia, right side. He has hemoptysis along with this. He has a pleuritic type chest pain. In addition, has evidence of renal failure that appears chronic. I suspect bacterial infection as cause of his pneumonia. His septic shock I suspect is secondary to his pneumonia. He does have underlying coronary disease along with his cancer history. RECOMMENDATIONS: We will continue with broad antibiotic coverage due to his septic picture. This will include both typical and atypical bacterial pathogens. Considering his other comorbidities, we will go with vancomycin, Zosyn and azithromycin. I do not think we are dealing with influenza considering the acute onset of his infection along with the decreased numbers of influenza in the city. We will obtain sputum culture and obtain urine culture from his ileal conduit as well as his left nephrostomy tube. He will have serial laboratory studies and adjust his antibiotics accordingly. <ELECTRONICALLY SIGNED> By: Rafa Jimenes MD 11/23/17 0843 [id number] 09 Rafa Jimenes MD /nt
--- NOTE | ~2017-11-20 | HC ---
[facility] [place] [address] CONSULTATION Name: SAI REGALADO Room #: 201-P [facility] IN .R.#: [id number] Admission: 11/20/17 Attend Phys: Román Gallagher MD Discharge: Date of : 38 Report #: [id number] THIS REPORT FOR: //name// CC: Román Perez DATE OF SERVICE: 11/24/2017 HISTORY OF PRESENT ILLNESS: The patient is a 77-year-old -[place] male, who has a history of severe rheumatoid arthritis, wheelchair bound, COPD, O2 dependent, nonischemic cardiomyopathy, atrial fibrillation. He was admitted with a fever and shortness of breath. He was diagnosed with septic shock and had multiorgan failure. He was treated in the intensive care unit with multiple proposal consultant involvement. He had problems with hypotension, was placed on Levophed drip. He has a premorbid ileal conduit and a left nephrostomy tube in place, longstanding. The patient was treated for a community-acquired pneumonia. He also was noted to have renal insufficiency. He was concerned regarding recurrent aspiration. He was continued on IV antibiotics. His septic shock has gradually improved along with the multiorgan failure and he has been moved out of the intensive care unit to progressive care. We are seeing him in rehabilitation medicine consultation. PAST MEDICAL HISTORY: Includes rheumatoid arthritis, hypertension, seizure disorder, GERD, COPD, and AFib. He has had bladder cancer and has a history of an ileal conduit and a left nephrostomy tube, longstanding. PAST SURGICAL HISTORY: Includes prior right total shoulder. He has had left shoulder injury from [place]. HABITS: Positive tobacco, 1 pack per day. ALLERGIES: TERAZOSIN AND TESTOSTERONE. FAMILY HISTORY: Noncontributory. HABITS: No significant ETOH intake. SOCIAL HISTORY: Lives in a house with his daughter. She works at [employer]. No steps. He is wheelchair bound, is able to transfer himself. He did have therapist that worked with him and he could walk a couple of times a week only with therapy. No gait on his own. He is on 2 liters nasal prong O2. [facility] does [facility] comes [facility] to assist. They apparently come in 3 hours a day. REVIEW OF SYSTEMS: Complains of generalized weakness. He has the chronic arthritic history. No current complaints of chest pain, shortness of breath or [facility] [address] [place] [address] CONSULTATION Name: [facility] Room #: 201-P [facility] IN [facility]#: [id number] Admission: 11/20/17 Attend Phys: Román Gallagher MD Discharge: Date of : 38 Report #: [id number] abdominal discomfort. PHYSICAL EXAMINATION: GENERAL: A 77-year-old -Albanian male, in no obvious distress. VITAL SIGNS: Last recorded temperature 98.1, pulse 54, respirations 18, blood pressure 126/69. He is pleasant, alert, hard of hearing. Nasal prong O2 is in place, 2.5 liters. NEUROLOGIC: He has severe arthritic changes of both hands with evidence of ulnar deviation, right fifth digit MCP contracture, decreased bpm analyst. He has surgical changes of both shoulders with definite decreased bilateral shoulder abduction and forward flexion. Strength of the upper extremities is a grade 3 to 3- proximally and a grade 3 to 3+ distally. In his lower extremities, there is no focal calf swelling. DTRs are trace to 1. Strength is a grade 3+/5. He is contact guard for sit to stand. Gait was 4 feet, min assist without a device. ASSESSMENT: A 77-year-old -[place]ian male with the following problem list: 1. Critical illness myopathy. 2. Multiorgan failure. 3. Septic shock. 4. Community-acquired pneumonia with noted concern for recurrent aspiration. 5. Question of Enterobacter urinary tract infection. 6. Chronic rheumatoid arthritis, premorbidly wheelchair bound. 7. History of bladder CA with left nephrostomy tube. 8. Acute renal insufficiency superimposed on chronic kidney disease. 9. Atrial fibrillation. 10. Cardiomyopathy. PLAN: The patient is a candidate for an acute in-hospital inpatient rehabilitation stay. The goal would be to maximize his functional independence while having the multiple proposal consultant physicians continue to follow regarding his significant medical comorbidities. He does have significant generalized debilitation along with his critical illness myopathy with his ICU hospitalization. We will be glad to follow along with you regarding rehab therapy issues. He can transfer when medically cleared and a bed available. By: 1213 [id number] Zeb Coburn MD /SARBJIT
[~2017-11-20 09:39] MED LIST changes: -DUONEB 2.5-0.5 M3 ML INH; -ENOXAPARIN40 MG/0.1 SUBQ; -KEPPRA 500 MG500 M1 PO; -MEROPENEM500 MG IV; -NYSTATIN100000 UNI SW&SWALLOW
[2017-11-20 10:01] LABS: MCH 26.1 pg (26.0-34.0); MCHC 33.2 g/dL (28.0-37.0); MCV 78.6 fL (80.0-100.0); PLATELET COUNT 232 thou/uL (150-400); RDW 16.9 % (10.5-14.5); WBC 21.3 thou/uL (4.0-11.0)
[2017-11-20 10:07] LABS: CALCIUM 8.7 mg/dL (8.5-10.1); CREATININE 2.1 mg/dL (0.7-1.3)
[2017-11-20 10:13] LABS: ALBUMIN 2.7 g/dL (3.4-5.0); DIRECT BILIRUBIN 0.2 mg/dL (<0.1-0.3); TOTAL BILIRUBIN 0.7 mg/dL (<0.1-1.0); TOTAL PROTEIN 6.4 g/dL (6.4-8.2)
[2017-11-20 10:14] LABS: URINE COLOR YELLOW
[2017-11-20 10:23] LABS: SSA (PROTEIN CONFIRMATORY) 3+ (APPROX. 200-500) mg/dL (Negative); URINE BILIRUBIN NEGATIVE (Negative); URINE CLARITY CLOUDY; URINE REDUCING SUBSTANCE NEGATIVE
[2017-11-20 10:25] LABS: SQUAMOUS >10 Many /LPF (0-3)
[2017-11-20 10:26] LABS: AMORPHOUS URATES Moderate /LPF (None Seen); CASTS None Seen /LPF (None Seen); URINE RBC 3-10 Few /HPF (0-2); URINE WBC-REFLEX 0-5 Rare /HPF (0-5); YEAST-REFLEX Present (None Seen)
[2017-11-20 10:28] LABS: ABSOLUTE NEUTROPHILS 14.7 thou/uL (1.4-8.2); ANISOCYTOSIS 1+
[2017-11-20 13:26] LABS: BE(vivo) 0.2 mmol/L (-2 to +3); HCO3 25.3 mmol/L (22.0-26.0); PCO2 42.6 mmHg (35.0-45.0); pH 7.391 (7.360-7.450); sO2 89.9 % (92.0-98.0)
[2017-11-20 15:58] LABS: FIBRINOGEN 359.8 mg/dL (210-360); INR 1.2; PROTIME 11.8 Seconds (9.3-11.4)
[2017-11-20 16:00] LABS: CREATININE 1.8 mg/dL (0.7-1.3); POTASSIUM 3.9 mmol/L (3.5-5.1)
[2017-11-20 16:04] LABS: ALBUMIN 2.4 g/dL (3.4-5.0); TOTAL BILIRUBIN 0.7 mg/dL (<0.1-1.0); TOTAL PROTEIN 5.9 g/dL (6.4-8.2)
[2017-11-20 17:17] LABS: CALCIUM 7.8 mg/dL (8.5-10.1); CREATININE 1.8 mg/dL (0.7-1.3); POTASSIUM 3.7 mmol/L (3.5-5.1)
[2017-11-20 17:51] LABS: HEMATOCRIT 30.3 % (42.0-52.0); MCHC 32.9 g/dL (28.0-37.0); MCV 79.1 fL (80.0-100.0); RBC 3.84 mil/uL (4.50-6.00); RDW 16.4 % (10.5-14.5); WBC 21.7 thou/uL (4.0-11.0)
[2017-11-20 21:26] LABS: URINE BILIRUBIN NEGATIVE (Negative); URINE BLOOD TRACE (Negative); URINE CLARITY SL CLOUDY; URINE GLUCOSE-RANDOM* NEGATIVE (Negative); URINE KETONES NEGATIVE (Negative); URINE PROTEIN (DIPSTICK) NEGATIVE (Negative); URINE SPECIFIC GRAVITY <= 1.005 (1.005-1.035); URINE UROBILINOGEN 0.2 E.U./dl (0.2-1.0)
[2017-11-20 21:27] LABS: URINE LEUKOCYTES-REFLEX 2+ (Negative); URINE NITRITE-REFLEX POSITIVE (Negative)
[2017-11-20 21:33] LABS: URINE COLOR STRAW
[2017-11-20 21:34] LABS: CREATININE 1.8 mg/dL (0.7-1.3)
[2017-11-20 21:40] LABS: COARSE GRANULAR CASTS 0-3 Few /LPF (None Seen); CRYSTALS None Seen /LPF (None Seen); SQUAMOUS 0-3 Few /LPF (0-3); URINE RBC 3-10 Few /HPF (0-2); URINE WBC-REFLEX 6-15 Few /HPF (0-5); YEAST-REFLEX Present (None Seen)
[2017-11-21] VITALS (26 sets, daily range): BP systolic 94–148; BP diastolic 49–79
[2017-11-21 04:30] LABS: ABSOLUTE NEUTROPHILS 17.7 thou/uL (1.4-8.2); BASOPHILS 0.1 % (0.0-2.0); HEMATOCRIT 29.9 % (42.0-52.0); HEMOGLOBIN 10.1 gm/dL (14.0-18.0); LYMPHOCYTES 9.4 % (24.0-44.0); MCH 26.6 pg (26.0-34.0); MCHC 33.7 g/dL (28.0-37.0); MCV 78.9 fL (80.0-100.0); MONOCYTES 1.8 % (1.0-8.0); PLATELET COUNT 201 thou/uL (150-400); POLYS 88.7 % (36.0-66.0); RBC 3.79 mil/uL (4.50-6.00); RDW 16.3 % (10.5-14.5); WBC 19.9 thou/uL (4.0-11.0)
[2017-11-21 04:41] LABS: CALCIUM 8.1 mg/dL (8.5-10.1); CREATININE 1.7 mg/dL (0.7-1.3); POTASSIUM 4.1 mmol/L (3.5-5.1)
[2017-11-22] VITALS (24 sets, daily range): BP systolic 89–132; BP diastolic 51–79
[2017-11-22 03:36] LABS: ABSOLUTE NEUTROPHILS 15.6 thou/uL (1.4-8.2); BASOPHILS 0.1 % (0.0-2.0); HEMATOCRIT 27.2 % (42.0-52.0); HEMOGLOBIN 9.2 gm/dL (14.0-18.0); LYMPHOCYTES 6.6 % (24.0-44.0); MCH 26.3 pg (26.0-34.0); MCHC 33.9 g/dL (28.0-37.0); MCV 77.6 fL (80.0-100.0); MONOCYTES 2.5 % (1.0-8.0); PLATELET COUNT 190 thou/uL (150-400); POLYS 90.8 % (36.0-66.0); RDW 16.8 % (10.5-14.5); WBC 17.2 thou/uL (4.0-11.0)
[2017-11-22 03:51] LABS: ALBUMIN 2.3 g/dL (3.4-5.0); CALCIUM 7.9 mg/dL (8.5-10.1); CREATININE 1.5 mg/dL (0.7-1.3); POTASSIUM 3.4 mmol/L (3.5-5.1); TOTAL BILIRUBIN 0.4 mg/dL (<0.1-1.0)
[2017-11-22 08:11] LABS: BE(vivo) 0.1 mmol/L (-2 to +3); HCO3 24.4 mmol/L (22.0-26.0); PCO2 38.1 mmHg (35.0-45.0); PO2 73.3 mmHg (80.0-100.0); pH 7.424 (7.360-7.450); sO2 95.1 % (92.0-98.0)
[2017-11-23] VITALS (15 sets, daily range): BP systolic 116–144; BP diastolic 61–90
[2017-11-23 04:40] LABS: HEMATOCRIT 27.8 % (42.0-52.0); HEMOGLOBIN 9.2 gm/dL (14.0-18.0); MCV 78.6 fL (80.0-100.0); RBC 3.54 mil/uL (4.50-6.00); RDW 16.5 % (10.5-14.5)
[2017-11-23 04:41] LABS: ALBUMIN 2.3 g/dL (3.4-5.0); CALCIUM 7.5 mg/dL (8.5-10.1); CREATININE 1.4 mg/dL (0.7-1.3); POTASSIUM 3.3 mmol/L (3.5-5.1); TOTAL BILIRUBIN 0.4 mg/dL (<0.1-1.0)
[2017-11-24 00:06] LABS: ADENOVIRUS Negative (Negative); INFLUENZA A Negative (Negative); INFLUENZA B Negative (Negative); METAPNEUMOVIRUS Negative (Negative); PARAINFLUENZA 1 Negative (Negative); PARAINFLUENZA 2 Negative (Negative); PARAINFLUENZA 3 Negative (Negative); RHINOVIRUS Positive (Negative); RSV A Negative (Negative); RSV B Negative (Negative)
[2017-11-24 03:31] VITALS: BP 136/60
[2017-11-24 06:40] LABS: HEMATOCRIT 27.5 % (42.0-52.0); HEMOGLOBIN 9.3 gm/dL (14.0-18.0); MCH 26.4 pg (26.0-34.0); MCHC 33.8 g/dL (28.0-37.0); MCV 78.2 fL (80.0-100.0); RBC 3.51 mil/uL (4.50-6.00); RDW 16.5 % (10.5-14.5); WBC 10.6 thou/uL (4.0-11.0)
[2017-11-24 06:54] LABS: CREATININE 1.3 mg/dL (0.7-1.3); POTASSIUM 3.7 mmol/L (3.5-5.1)
[2017-11-24 08:06] VITALS: BP 126/69
[2017-11-24 12:08] VITALS: BP 127/71
[2017-11-24 15:20] VITALS: BP 131/82
[2017-11-24 20:31] VITALS: BP 133/80
[2017-11-25 05:06] VITALS: BP 137/85
[2017-11-25 07:30] VITALS: BP 140/92
[2017-11-25] MEDS ORDERED: DUONEB 2.5-0.5 M3 ML INH ×2 (07:43)
[2017-11-25] MEDS ORDERED: ENOXAPARIN40 MG/0.1 SUBQ (07:43)
[2017-11-25] MEDS ORDERED: NYSTATIN100000 UNI SW&SWALLOW (07:43)
[2017-11-25] MEDS ORDERED: KEPPRA 500 MG500 M1 PO (07:44)
[2017-11-25] MEDS ORDERED: MEROPENEM500 MG IV (07:45)
[2017-11-25 11:30] VITALS: BP 124/80
== END 2017-11-25 12:30 | DRG 871 ==
LOC: ER 09:39 → 2N 10:47 → EROBS 10:47 → ICU 10:47 → 2N 11-23 17:50
PROVIDERS: Emergency Medicine; Hospitalist; Internal Medicine Pulmonary Disease; Specialist
PROC: 02HV33Z Insertion of Infusion Device into Superior Vena Cava, Percutaneous Approach (ICD-10-PCS; principal; 2017-11-20)
DX: A41.9 Sepsis, unspecified organism (principal); J69.0 Pneumonitis due to inhalation of food and vomit; R65.21 Severe sepsis with septic shock; J12.1 Respiratory syncytial virus pneumonia; J96.21 Acute and chronic respiratory failure with hypoxia; I50.20 Unspecified systolic (congestive) heart failure; N17.9 Acute kidney failure, unspecified; N39.0 Urinary tract infection, site not specified; I13.0 Hypertensive heart and chronic kidney disease with heart failure and stage 1 through stage 4 chronic kidney disease, or unspecified chronic kidney disease; E87.0 Hyperosmolality and hypernatremia; I42.9 Cardiomyopathy, unspecified; G72.81 Critical illness myopathy; E44.1 Mild protein-calorie malnutrition; E78.5 Hyperlipidemia, unspecified; G40.909 Epilepsy, unspecified, not intractable, without status epilepticus; B95.3 Streptococcus pneumoniae as the cause of diseases classified elsewhere; D50.9 Iron deficiency anemia, unspecified; E87.6 Hypokalemia; N18.3 Chronic kidney disease, stage 3 (moderate); E03.9 Hypothyroidism, unspecified; K21.9 Gastro-esophageal reflux disease without esophagitis; Y95 Nosocomial condition; J44.9 Chronic obstructive pulmonary disease, unspecified; I48.91 Unspecified atrial fibrillation; H91.90 Unspecified hearing loss, unspecified ear; M06.9 Rheumatoid arthritis, unspecified; F17.210 Nicotine dependence, cigarettes, uncomplicated; Z85.51 Personal history of malignant neoplasm of bladder; Z99.3 Dependence on wheelchair; Z90.79 Acquired absence of other genital organ(s); Z90.49 Acquired absence of other specified parts of digestive tract; Z79.82 Long term (current) use of aspirin; Z79.899 Other long term (current) drug therapy; Z88.8 Allergy status to other drugs, medicaments and biological substances
CPT/HCPCS: 10078; 10081; 27000

== ENCOUNTER 2017-11-25 10:30 | Inpatient (IN) | payer OTHER ==
[~2017-11-25] VITALS: Ht 177.8 cm; Wt 86.2 kg
--- NOTE | ~2017-11-25 | H ---
[facility] [address] HISTORY AND PHYSICAL Name: SAI REGALADO Room #: 512-P [facility] IN .R.#: [id number] Admission: 11/25/17 Attend Phys: Zeb Coburn MD Discharge: Date of : 38 Report #: [id number] THIS REPORT FOR: //name// CC: Zeb Perez DATE OF SERVICE: 11/25/2017 HISTORY OF PRESENT ILLNESS: The patient is a 77-year-old male with a history of severe rheumatoid arthritis, wheelchair bound, COPD, O2 dependent, nonischemic cardiomyopathy, atrial fibrillation. He was admitted with fever and shortness of breath. He was diagnosed with septic shock and had multiorgan failure. He was treated in the Intensive Care Unit with multiple tour consultant involvement. He had problems with hypotension, was placed on a Levophed drip. He has a premorbid ileal conduit and a left nephrostomy tube in place longstanding. He was treated for community-acquired pneumonia. He was also noted to have renal insufficiency. There was concern regarding recurrent aspiration. He was continued on the IV antibiotics. His septic shock gradually improved along with multiorgan failure, but he was noted to have considerable weakness and was felt to have findings consistent with a critical illness myopathy. He has now been admitted for acute in-hospital inpatient rehabilitation. PAST MEDICAL HISTORY: Includes rheumatoid arthritis, hypertension, seizure disorder, GERD, COPD, atrial fibrillation. He has had bladder cancer and has a history of an ileal conduit in the left nephrostomy tube, longstanding. PAST SURGICAL HISTORY: Includes prior right total shoulder. He has a left shoulder injury from the [place] War. HABITS: Positive tobacco 1 pack per day. ALLERGIES: TERAZOSIN AND TESTOSTERONE. FAMILY HISTORY: Noncontributory. SOCIAL HISTORY: Lives in a house with his daughter. He works at [employer], no steps. He is wheelchair bound, was able to transfer himself. He did have a therapist work with him and he could walk a couple of times a week only with therapy. No gait on his own. He was on 2 liters nasal prong O2. They have a teacher private that [facility] to assist. REVIEW OF SYSTEMS: No complaints of chest pain, shortness of breath. He has the chronic arthritic history. No abdominal discomfort. PHYSICAL EXAMINATION: GENERAL: A 77-year-old male, who is in no distress. [address] [address] HISTORY AND PHYSICAL Name: [facility] Room #: 512-P [facility] IN ..#: [id number] Admission: 11/25/17 Attend Phys: Zeb Coburn MD Discharge: Date of : 38 Report #: [id number] VITAL SIGNS: Last recorded temperature 97.9, pulse 74, respirations 20, blood pressure 124/80. He was alert, quite hard of hearing. Nasal prong O2 in place. HEENT: Appeared to be benign. CHEST: Some decreased breath sounds throughout. CARDIOVASCULAR: Regular rate and rhythm. ABDOMEN: Bowel sounds positive, nontender. GENITOURINARY AND RECTAL: Deferred. EXTREMITIES: He has severe arthritic changes of both hands with evidence of ulnar deviation, right fifth digit MCP contracture, decreased parts sales advisor. EXTREMITIES: He has surgical changes of both shoulders with definite decreased bilateral shoulder abduction and forward flexion. Strength of the upper extremities to grade 3-3- proximally and a grade 3-3+ distally. In his lower extremities, there is no focal calf swelling. DTRs are trace to 1. Strength is grade 3+/5. He was contact guard for sit to stand. Gait was 4 feet min assist without a device. ASSESSMENT: A 77-year-old -Bolivian male with the following problems: 1. Critical illness myopathy. 2. Multiorgan failure. 3. Septic shock. 4. Community-acquired pneumonia with noted concern for recurrent aspiration. 5. Question of Enterobacter urinary tract infection. 6. Chronic rheumatoid arthritis, premorbidly wheelchair bound. 7. History of bladder cancer with left nephrostomy tube. 8. Acute renal insufficiency superimposed on chronic kidney disease. 9. Atrial fibrillation. 10. Cardiomyopathy. PLAN: The patient is admitted for acute in-hospital inpatient rehabilitation. From a postadmission physician evaluation perspective, there are no relevant changes since the preadmission screening. Please see the above review of prior and current medical and functional conditions and comorbidities. Please see the patient's previous and current functional status. As far as risk of complications, the patient does have the multiple medical comorbidities as noted above. Initial plan of care involves the interdisciplinary acute inpatient rehabilitation program. Prognosis is reasonably good with estimated length of stay, probably at least 7-14 days, pending progress. Potential barriers would include his multiple medical comorbidities and decreased functional status. The patient meets diagnostic criteria for an acute in-hospital inpatient rehabilitation stay, meets the medical necessity criteria and we will have the multiple consultants continue to follow. He does have the tolerance for therapies and has appropriate discharge goals back to the home setting. ADDENDUM [facility] [address] [place] [address] HISTORY AND PHYSICAL Name: BLANK,WILL H Room #: 512-P ADM IN M.R.#: [id number] Admission: 11/25/17 Attend Phys: Zeb Coburn MD Discharge: Date of : 38 Report #: [id number] EGD to be completed in 4-6 weeks once pneumonia has improved. <ELECTRONICALLY SIGNED> By: Zeb Coburn MD 12/02/17 1504 2059 2139 Zeb Coburn MD /[facility]
--- NOTE | ~2017-11-25 | PLAN ---
[facility] [place] [address] REHAB UNIT PLAN OF CARE Name: SAI REGALADO Room #: 512-P ADM IN M.R.#: [id number] Admission: 11/25/17 Attend Phys: Zeb Coburn MD Discharge: Date of : 38 Report #: [id number] THIS REPORT FOR: //name// CC: Zeb Lauramary Patelcheyanne DATE OF SERVICE: 11/27/2017 The patient seen back today in followup. He was in no distress. Last recorded temperature 36.4, pulse 51, respirations 18, blood pressure 124/82. He is in no distress. He is quite hard of hearing and need to talk into his right ear. No calf swelling. Transfers are standby assistance. Gait standby assistance 75 feet front-wheeled walker. Lower body dressing is min assist. He has moderate comprehensive deficits. He is on a regular diet with thin liquids. ASSESSMENT: 1. Critical illness myopathy. 2. Multiorgan failure. 3. Septic shock. 4. Community-acquired pneumonia with noted concern for recurrent aspiration. 5. Question of Enterobacter urinary tract infection. 6. Chronic rheumatoid arthritis, premorbidly wheelchair bound. 7. History of bladder cancer with left nephrostomy tube. 8. Acute renal insufficiency, superimposed, on chronic kidney disease. 9. Atrial fibrillation. 10. Cardiomyopathy. PLAN: The overall plan of care is based on the preadmission screen, post-admission physician evaluation and information garnered from therapy assessments. 1. Estimated length of stay is probably at least 7-14 days. 2. Medical prognosis is reasonably good. 3. Anticipated interventions include the interdisciplinary acute inpatient rehabilitation program with PT, OT, speech rehab nursing assisting regarding medication management, skin care prophylaxis, bowel and bladder issues and nursing education. Case management is involved as well as the skin care consultant physicians. 4. Anticipated functional outcomes would be for the patient to become modified independent ideally able to transfer himself and able to care for himself at the level he was wheelchair bound premorbidly. 5. Discharge destination would be back home to the house with his daughter. 6. Expected therapy by discipline includes PT, OT and speech 1 hour per day [address] [address] REHAB UNIT PLAN OF CARE Name: [facility] Room #: 512-P [facility] IN [facility]#: [id number] Admission: 11/25/17 Attend Phys: Zeb Coburn MD Discharge: Date of : 38 Report #: [id number] each five days a week throughout the duration of the acute inpatient rehabilitation stay. <ELECTRONICALLY SIGNED> By: Zeb Coburn MD 12/02/17 1504 1445 0359 Zeb Coburn MD /nt
[~2017-11-25 10:30] MED LIST changes: +DUONEB 2.5-0.5 M3 ML INH; +ENOXAPARIN40 MG/0.1 SUBQ; +KEPPRA 500 MG500 M1 PO; +MEROPENEM500 MG IV; +NYSTATIN100000 UNI SW&SWALLOW
[2017-11-25 20:37] VITALS: BP 144/82
[2017-11-26 06:49] LABS: HEMATOCRIT 29.3 % (42.0-52.0); HEMOGLOBIN 9.9 gm/dL (14.0-18.0); MCH 26.6 pg (26.0-34.0); MCHC 33.6 g/dL (28.0-37.0); MCV 79.1 fL (80.0-100.0); RBC 3.71 mil/uL (4.50-6.00); RDW 16.6 % (10.5-14.5); WBC 10.6 thou/uL (4.0-11.0)
[2017-11-26 07:01] LABS: CALCIUM 8.1 mg/dL (8.5-10.1); CREATININE 1.2 mg/dL (0.7-1.3); POTASSIUM 3.8 mmol/L (3.5-5.1)
[2017-11-26 07:39] VITALS: BP 134/73
[2017-11-26 19:18] LABS: % SATURATION 29 % (20-39); IRON 51 ug/dL (65-175); TIBC 175 ug/dL (250-450)
[2017-11-26 19:35] VITALS: BP 123/79
[2017-11-27 07:40] VITALS: BP 124/82
[2017-11-28 07:42] VITALS: BP 120/72
[2017-11-28 20:00] VITALS: BP 127/78
[2017-11-29 09:00] VITALS: BP 110/65
[2017-11-29 17:00] VITALS: BP 106/51
[2017-11-29 20:20] VITALS: BP 105/42
[2017-11-30 09:00] VITALS: BP 115/53
[2017-11-30 20:00] VITALS: BP 110/52
[2017-12-01 05:32] LABS: BASOPHILS 0.3 % (0.0-2.0); EOSINOPHILS 1.5 % (0.0-3.0); HEMATOCRIT 29.6 % (42.0-52.0); HEMOGLOBIN 10.1 gm/dL (14.0-18.0); LYMPHOCYTES 36.8 % (24.0-44.0); MCH 26.9 pg (26.0-34.0); MCHC 34.1 g/dL (28.0-37.0); MCV 78.8 fL (80.0-100.0); MONOCYTES 8.7 % (1.0-8.0); PLATELET COUNT 289 thou/uL (150-400); POLYS 52.7 % (36.0-66.0); RBC 3.75 mil/uL (4.50-6.00); RDW 17.5 % (10.5-14.5); WBC 7.6 thou/uL (4.0-11.0)
[2017-12-01 05:37] LABS: CALCIUM 8.4 mg/dL (8.5-10.1); CREATININE 1.5 mg/dL (0.7-1.3); MAGNESIUM 2.1 mg/dL (1.8-2.4); POTASSIUM 3.7 mmol/L (3.5-5.1)
[2017-12-01 09:07] VITALS: BP 89/51
[2017-12-01 21:09] VITALS: BP 104/57
[2017-12-02 08:10] VITALS: BP 99/54
[2017-12-02] MEDS ORDERED: ACIDOPHILUS1 EAC4 PO (13:43)
[2017-12-02] MEDS ORDERED: IRON325 PO (13:43)
[2017-12-02] MEDS ORDERED: BACTRIM DS TAB1 EACH PO (13:43)
[2017-12-02] MEDS ORDERED: LASIX 20 MG TAB20 MG PO (13:43)
[2017-12-02] MEDS ORDERED: DUONEB 2.5-0.5 M3 ML INH (13:43)
[2017-12-02] MEDS ORDERED: MUCINEX600 MG PO (13:43)
[2017-12-02] MEDS ORDERED: VITAMIN D1000 UNI1 PO (13:43)
[2017-12-02 19:30] VITALS: BP 108/48
[2017-12-03 07:42] LABS: HEMATOCRIT 29.7 % (42.0-52.0); HEMOGLOBIN 10.1 gm/dL (14.0-18.0); MCH 26.6 pg (26.0-34.0); MCV 78.4 fL (80.0-100.0); PLATELET COUNT 271 thou/uL (150-400); RBC 3.79 mil/uL (4.50-6.00); RDW 17.6 % (10.5-14.5); WBC 8.2 thou/uL (4.0-11.0)
[2017-12-03 07:49] VITALS: BP 125/58
[2017-12-03 07:50] LABS: CALCIUM 8.2 mg/dL (8.5-10.1); CREATININE 1.5 mg/dL (0.7-1.3); MAGNESIUM 2.3 mg/dL (1.8-2.4); POTASSIUM 3.7 mmol/L (3.5-5.1)
[2017-12-03 08:11] LABS: ABSOLUTE NEUTROPHILS 3.9 thou/uL (1.4-8.2); ANISOCYTOSIS 1+; ATYPICAL LYMPHS 2 %
[2017-12-03 08:12] LABS: HYPOCHROMASIA 1+
[2017-12-03 11:14] VITALS: BP 125/58
[2017-12-03 11:25] VITALS: BP 125/58
== END 2017-12-03 13:18 | disposition home health service (06) | DRG 91 ==
PROVIDERS: Nurse Practitioner; Physical Medicine & Rehabilitation; Specialist
DX: G72.81 Critical illness myopathy (principal); A41.9 Sepsis, unspecified organism; J12.89 Other viral pneumonia; J69.0 Pneumonitis due to inhalation of food and vomit; I42.9 Cardiomyopathy, unspecified; N17.9 Acute kidney failure, unspecified; K52.1 Toxic gastroenteritis and colitis; N39.0 Urinary tract infection, site not specified; M06.9 Rheumatoid arthritis, unspecified; J44.9 Chronic obstructive pulmonary disease, unspecified; I48.91 Unspecified atrial fibrillation; I95.9 Hypotension, unspecified; B96.89 Other specified bacterial agents as the cause of diseases classified elsewhere; G40.909 Epilepsy, unspecified, not intractable, without status epilepticus; K21.9 Gastro-esophageal reflux disease without esophagitis; F17.210 Nicotine dependence, cigarettes, uncomplicated; I12.9 Hypertensive chronic kidney disease with stage 1 through stage 4 chronic kidney disease, or unspecified chronic kidney disease; N18.9 Chronic kidney disease, unspecified; D64.9 Anemia, unspecified; T36.95XA Adverse effect of unspecified systemic antibiotic, initial encounter; Z99.3 Dependence on wheelchair; Z99.81 Dependence on supplemental oxygen; Z85.51 Personal history of malignant neoplasm of bladder; Z88.8 Allergy status to other drugs, medicaments and biological substances; Y92.89 Other specified places as the place of occurrence of the external cause
CPT/HCPCS: 10112

== ENCOUNTER 2019-05-23 17:33 | Inpatient (IN) | payer OTHER ==
[~2019-05-23] VITALS: Ht 182.9 cm; Wt 74.8 kg
[~2019-05-23 17:33] MED LIST changes: +ACIDOPHILUS1 EAC4 PO; +BACTRIM DS TAB1 EACH PO; +IRON325 PO; -LEVOTHYROXIN0.075 MG PO; +MUCINEX600 MG PO; +SYNTHROID50 MCG PO; +VITAMIN D1000 UNI1 PO
[2019-05-23 17:34] VITALS: BP 117/54
[2019-05-23 17:55] LABS: ABSOLUTE NEUTROPHILS 7.8 thou/uL (1.4-8.2); BASOPHILS 0.2 % (0.0-2.0); EOSINOPHILS 0.4 % (0.0-3.0); HEMATOCRIT 27.6 % (42.0-52.0); HEMOGLOBIN 9.3 gm/dL (14.0-18.0); LYMPHOCYTES 19.3 % (24.0-44.0); MCH 27.6 pg (26.0-34.0); MCHC 33.5 g/dL (28.0-37.0); MCV 82.3 fL (80.0-100.0); PLATELET COUNT 353 thou/uL (150-400); POLYS 73.1 % (36.0-66.0); RBC 3.35 mil/uL (4.50-6.00); RDW 16.3 % (10.5-14.5); WBC 10.6 thou/uL (4.0-11.0)
[2019-05-23] MEDS ORDERED: TYLENOL WITH CO1 TA1 PO (18:01)
[2019-05-23] MEDS ORDERED: LACTULOSE10 GM/152 PO (18:02)
[2019-05-23 18:09] LABS: CREATININE 1.4 mg/dL (0.7-1.3); POTASSIUM 4.1 mmol/L (3.5-5.1)
[2019-05-23 18:20] LABS: ALBUMIN 2.8 g/dL (3.4-5.0); MAGNESIUM 2.2 mg/dL (1.8-2.4); TOTAL BILIRUBIN 0.3 mg/dL (<0.1-1.0); TOTAL PROTEIN 6.9 g/dL (6.4-8.2)
[2019-05-23 18:24] LABS: TROPONIN-I 1.19 ng/mL (<0.06)
[2019-05-23] MEDS ORDERED: AUGMENTIN 875-1 EACH PO (18:37)
[2019-05-23 19:38] VITALS: BP 112/52
[2019-05-23 20:24] VITALS: BP 116/53
[2019-05-23 23:12] LABS: HEMATOCRIT 25.3 % (42.0-52.0); HEMOGLOBIN 8.6 gm/dL (14.0-18.0); MCH 27.8 pg (26.0-34.0); MCHC 33.9 g/dL (28.0-37.0); MCV 82.1 fL (80.0-100.0); RBC 3.08 mil/uL (4.50-6.00); RDW 16.1 % (10.5-14.5); WBC 9.9 thou/uL (4.0-11.0)
[2019-05-23 23:20] LABS: PROTIME 10.8 Seconds (9.3-11.4)
[2019-05-23 23:25] LABS: CHOLESTEROL 122 mg/dL (<200); HDL CHOLESTEROL 31 mg/dL (>40); LDL CHOLESTEROL 72 mg/dL (<100); TC:HDL 3.9 Ratio (Not establshd); TRIGLYCERIDE 97 mg/dL (<150); VLDL 19 mg/dL (<40)
[2019-05-23 23:26] LABS: SERUM ASSESSMENT Clear
[2019-05-24 03:49] VITALS: BP 105/50
--- NOTE | 2019-05-24 04:04 | NUR ---
RECEIVED REPORT FROM [facility] ED RN.PATIENT ARRIVED TO ROOM 210 ACCOMPANIED BY HIS SON THEN LATER HIS DAUGHTER CAME.ALERT AND ORIENTED WITH FORGETFULNESS.HARD OF HEARING.DENIES CHEST PAIN.SOB ALL THE TIME.O2 2L NC IS HIS BASELINE AT HOME.MONITOR SHOWS SINUS ARRHYTHMIA.TROPONIN ELEVATED.HEPARIN GTT PROTOCOL STARTED.UROSTOMY AND NEPHROSTOMY INTACT.NPO SINCE MIDNIGHT.WILL MONITOR AND CONTINUE POC.
[2019-05-24 05:53] LABS: HEMATOCRIT 24.4 % (42.0-52.0); HEMOGLOBIN 8.1 gm/dL (14.0-18.0); MCH 27.9 pg (26.0-34.0); MCHC 33.3 g/dL (28.0-37.0); MCV 83.6 fL (80.0-100.0); RBC 2.91 mil/uL (4.50-6.00); RDW 16.2 % (10.5-14.5); WBC 9.2 thou/uL (4.0-11.0)
[2019-05-24 05:57] LABS: CALCIUM 8.6 mg/dL (8.5-10.1); CREATININE 1.2 mg/dL (0.7-1.3); POTASSIUM 3.7 mmol/L (3.5-5.1)
--- NOTE | 2019-05-24 08:03 | EKG ---
[address] [address] ELECTROCARDIOGRAM REPORT Name: SAI REGALADO Room #: 210-P ADM IN M.R.#: [id number] Admission: 05/23/19 Attend Phys: Leroy Larkin MD Discharge: Date of : 38 Report #: [id number] THIS REPORT FOR: //name// [facility] ED Test Date: 2019-05-23 Test Time: 17:38:32 Pat Name: SAI REGALADO Department: Room: 210 Gender: M Volumetric Weigher: NICKI : 1940 Requested By: Malena Soto Order Number: [id number] MD: Broderick Harris Measurements Intervals [place] Rate: 79 P: 35 NE: 158 QRS: -7 QRSD: 83 T: QT: 445 QTc: 511 Interpretive Statements Sinus rhythm Atrial premature complexes Nonspecific ST and T wave abnormality Prolonged QT interval Compared to ECG 11/20/2017 10:44:11 Atrial premature complex(es) now present Prolonged QT interval now present Nonspecific change in the ST and T-wave segments Electronically Signed On 05-24-2019 8:03:29 CDT by Broderick Harris [email or web address] <ELECTRONICALLY SIGNED> By: Broderick Harris MD, FAC 05/24/19 0803 1738 1738 Broderick Harris MD, [facility] /EPI
--- NOTE | 2019-05-24 08:08 | EKG ---
[address] [place] [address] ELECTROCARDIOGRAM REPORT Name: SAI REGALADO Room #: 210-P ADM IN M.R.#: [id number] Admission: 05/23/19 Attend Phys: Leroy Larkin MD Discharge: Date of : 38 Report #: [id number] THIS REPORT FOR: //name// [facility] Test Date: 2019-05-24 Test Time: 07:17:10 Pat Name: SAI REGALADO Department: Room: 210 P Gender: M Passenger Vessel Chef: Priscilla PELAYO : 1940 Requested By: Hannah Boudreaux Order Number: [id number] MD: Broderick Harris Measurements Intervals [place] Rate: 64 P: 39 NC: 175 QRS: 44 QRSD: 105 T: -89 QT: 523 QTc: 540 Interpretive Statements Sinus rhythm Low voltage, extremity leads Abnormal T, consider ischemia, anterior leads Prolonged QT interval Compared to ECG 11/20/2017 10:44:11 T-wave abnormality more prominent Prolonged QT interval now present Atrial premature complex(es) no longer present Electronically Signed On 05-24-2019 8:08:22 CDT by Broderick Harris [email or web address] <ELECTRONICALLY SIGNED> By: Broderick Harris MD, [facility] 05/24/19 0808 6 6 Broderick Harris MD, [facility] /EPI
[2019-05-24 08:32] VITALS: BP 111/55
--- NOTE | 2019-05-24 10:13 | 2DMMODE ---
[facility] [place] [address] 2 D/M-MODE ECHOCARDIOGRAM Name: SAI REGALADO Room #: 210-P [facility] IN [facility].#: [id number] Admission: 05/23/19 Attend Phys: Leroy Larkin MD Discharge: Date of : 38 Report #: [id number] THIS REPORT FOR: //name// APPROVED REPORT Study performed: 05/24/2019 09:30:16 EXAM: Comprehensive 2D, Doppler, and color-flow Echocardiogram Patient Location: Bedside Room #: 210 Status: routine BSA: 2.02 HR: 92 bpm BP: 111/55 mmHg Other Information Study Quality: Technically DifficultTechnically Limited Indications COPD Dyspnea Cardiomyopathy Hypertension/HDD 2D Dimensions IVSd: 9.43 (7-11mm) LVOT Diam: 22.92 (18-24mm) LVDd: 60.27 mm PWd: 6.78 (7-11mm) Ascending Ao: 37.23 (22-36mm) LVDs: 54.70 (25-40mm) Aortic Root: 32.50 mm IVC: 24.00 mm Pulmonary Valve PV Peak Chris.: 1.03 m/s PV Peak Gr.: 4.22 mmHg Tricuspid Valve TR Peak Chris.: 3.68 m/s TR Peak Gr.: 54.20 mmHg PA Pressure: 64.00 mmHg Left Ventricle Left ventricle is dilated. There is global hypokinesis of the left ventricle. There is normal left ventricular wall thickness. Left ventricular systolic function is severely decreased. LVEF is 30%. This study is not technically sufficient to allow evaluation of the [facility] [address] [place] [address] 2 D/M-MODE ECHOCARDIOGRAM Name: [facility] Room #: 210-P [facility] IN [facility].#: [id number] Admission: 05/23/19 Attend Phys: Leroy Larkin MD Discharge: Date of : 38 Report #: [id number] LV diastolic function. Right Ventricle Right ventricle is dilated. Right ventricular systolic function is grossly normal. Atria Left atrium is dilated. Right atrium is dilated. Aortic Valve The aortic valve is normal in structure. Mild aortic regurgitation. There is no aortic valvular stenosis. Mitral Valve The mitral valve is normal in structure. Moderate mitral regurgitation. No evidence of mitral valve stenosis. Tricuspid Valve The tricuspid valve is normal in structure. There is mild to moderate tricuspid regurgitation. Estimated PAP 60 mmHg. There is moderate pulmonary hypertension. Pulmonic Valve The pulmonary valve is normal in structure. Mild pulmonic regurgitation. Great Vessels The aortic root is normal in size. IVC is dilated and collapses >50% with inspiration. Pericardium There is no pericardial effusion. <Conclusion> Left ventricle is dilated. There is normal left ventricular wall thickness. Left ventricular systolic function is severely decreased. LVEF is 30%. Right ventricle is dilated. Left atrium is dilated. Mild aortic regurgitation. Moderate mitral regurgitation. [facility] [address] [place] [address] 2 D/M-MODE ECHOCARDIOGRAM Name: BLANK,WILL H Room #: 210-P ADM IN M.R.#: [id number] Admission: 05/23/19 Attend Phys: Leroy Larkin MD Discharge: Date of : 38 Report #: [id number] There is mild to moderate tricuspid regurgitation. Estimated PAP 60 mmHg. <ELECTRONICALLY SIGNED> By: Nick Barajas MD 05/24/19 1013 12 12 Nick Barajas MD /INF
[2019-05-24 13:00] VITALS: BP 102/58
[2019-05-24 16:00] VITALS: BP 115/61
[2019-05-24 20:48] VITALS: BP 112/55
[2019-05-25 00:08] LABS: GLYCOHEMOGLOBIN (HGB A1C) 5.3 % (4.8-5.6)
--- NOTE | 2019-05-25 03:12 | NUR ---
A/O X 4.HARD OF HEARING.PAIN WELL CONTROLLED.IV FLUIDS INFUSING.MONITOR SHOWS SINUS RHYTHM.UROSTOMY AND NEPHROSTOMY INTACT.WILL CONTINUE POC.
[2019-05-25 04:36] LABS: ALBUMIN 2.2 g/dL (3.4-5.0); CALCIUM 8.2 mg/dL (8.5-10.1); CREATININE 1.3 mg/dL (0.7-1.3); PHOSPHORUS 2.5 mg/dL (2.5-4.9); POTASSIUM 3.7 mmol/L (3.5-5.1)
[2019-05-25 04:55] VITALS: BP 172/81
[2019-05-25 07:50] VITALS: BP 114/54
[2019-05-25 12:18] VITALS: BP 89/46
[2019-05-25 12:45] VITALS: BP 110/50
[2019-05-25 13:13] LABS: HEMATOCRIT 25.8 % (42.0-52.0); HEMOGLOBIN 8.5 gm/dL (14.0-18.0)
[2019-05-25 13:28] LABS: ALBUMIN 2.3 g/dL (3.4-5.0); CALCIUM 8.3 mg/dL (8.5-10.1); CREATININE 1.3 mg/dL (0.7-1.3); MAGNESIUM 1.9 mg/dL (1.8-2.4); POTASSIUM 3.6 mmol/L (3.5-5.1); TOTAL BILIRUBIN 0.5 mg/dL (<0.1-1.0); TOTAL PROTEIN 5.9 g/dL (6.4-8.2)
--- NOTE | 2019-05-25 14:38 | NUR ---
CM ASSESSMENT: CASE OPENED FOR DC PLANNING. PT ADMITTED THRU ER WITH CHEST PAIN AND HAD STRESS TEST-NEGATIVE FOR ISCHEMIA. DTR REPORTS HX OF COFFEE GROUND EMESIS AT HOME AND HGB 8.5 FROM AROUND 10.5 ON ADMIT. GI CONSULTED TODAY. 'S ADMINISTRATION AUTHORIZING INPT STAY AND REQUEST CALL TO [facility]. CALLED 05/25/19 AFTER MEETING WITH PT AND SPEAKING WITH PT/S DPOA VICTOR MANUEL ROQUE BY PHONE. BOTH PT AND DTR DECLINE TRANSFER TO [facility] AND [facility] AT THE [place] EXT. [phone] NOTIFIED AORUND 1300 TODAY. ALSO SPOKE WITH OFFICE OF COMMUNITY [facility] TO UPDATE. 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 PT NEEDS ASSIST WITH ADLS. DME INCLUDES WALKER, SCOOTER, HOSPTIAL BED, HOME O2 (2L NC CONTINUOUS). CURRENTLY HAS HOME HEALTH FROM [facility] . CALLED [facility] TO UPDATE AND VM LEFT WITH CM CONTACT. HOME O2 THROUGH [facility] . MYA INDICATES ALSO HAS CAREGIVER 2 HRS A DAY, 3 X WEEK. THERPAY EVALS ORDERED. DC PLAN TO RETURN HOME WITH DTR.
[2019-05-25 17:15] VITALS: BP 107/43
[2019-05-25 17:20] LABS: HEMATOCRIT 25.3 % (42.0-52.0); HEMOGLOBIN 8.4 gm/dL (14.0-18.0)
--- NOTE | 2019-05-25 19:55 | NUR ---
MEDICAL RECORDS REQUEST FAXED TO [facility].
[2019-05-25 20:17] VITALS: BP 105/64
--- NOTE | 2019-05-26 05:03 | NUR ---
ASSUMED PT CARE AT 1900, WITH NO SIGN OF DISTRESS NOTED IN PT. PT IS ALERT, NO FAMILY AT BEDSIDE. FALL PRECAUTION IN PLACE. ASSESSMENT COMPLETED AND CHARTED. SCHEDULED MEDS ADMINISTERED TO PT. PT TOLERATED PO INTAKE. NO SIGN OF DISTRESS NOTED IN PT. PT IS STABLE THROUGHOUT THE NIGHT. DENIES ANY FURTHER NEEDS AT THIS TIME.
[2019-05-26 05:40] LABS: ABSOLUTE NEUTROPHILS 4.9 thou/uL (1.4-8.2); BASOPHILS 0.3 % (0.0-2.0); EOSINOPHILS 2.2 % (0.0-3.0); HEMATOCRIT 25.8 % (42.0-52.0); HEMOGLOBIN 8.6 gm/dL (14.0-18.0); LYMPHOCYTES 33.6 % (24.0-44.0); MCH 27.5 pg (26.0-34.0); MCHC 33.3 g/dL (28.0-37.0); MCV 82.6 fL (80.0-100.0); MONOCYTES 11.8 % (1.0-8.0); PLATELET COUNT 368 thou/uL (150-400); POLYS 52.1 % (36.0-66.0); RBC 3.12 mil/uL (4.50-6.00); RDW 16.5 % (10.5-14.5); WBC 9.5 thou/uL (4.0-11.0)
[2019-05-26 06:00] VITALS: BP 118/56
[2019-05-26 06:00] LABS: ALBUMIN 2.3 g/dL (3.4-5.0); CALCIUM 8.2 mg/dL (8.5-10.1); CREATININE 1.2 mg/dL (0.7-1.3); MAGNESIUM 1.7 mg/dL (1.8-2.4); PHOSPHORUS 2.7 mg/dL (2.5-4.9); TOTAL BILIRUBIN 0.4 mg/dL (<0.1-1.0); TOTAL PROTEIN 6.2 g/dL (6.4-8.2)
[2019-05-26 08:25] VITALS: BP 95/45
[2019-05-26 10:24] VITALS: BP 100/41
--- NOTE | 2019-05-26 10:52 | NUR ---
VASCULAR ACCESS NURSE ROUNDING. BRISK FLUSH TO RIGHT CHEST PORT WITHOUT BLOOD RETURN. THIS PATIENT IS SET FOR A EGD/COLONOSCOPY- POSSIBLE GI BLEED. CATHFLO IS RECOMMENDED ONLY IF THE GI DOCTOR APPROVES DUE TO CURRENT CONDITION. I WILL AWAIT RECOMMENDATION
[2019-05-26 11:45] VITALS: BP 19/43
[2019-05-26 12:54] LABS: URINE BILIRUBIN NEGATIVE (Negative); URINE BLOOD NEGATIVE (Negative); URINE CLARITY CLEAR; URINE COLOR YELLOW; URINE GLUCOSE-RANDOM* NEGATIVE (Negative); URINE KETONES NEGATIVE (Negative); URINE LEUKOCYTES-REFLEX NEGATIVE (Negative); URINE NITRITE-REFLEX NEGATIVE (Negative); URINE PROTEIN (DIPSTICK) TRACE (Negative); URINE SPECIFIC GRAVITY <= 1.005 (1.005-1.035); URINE UROBILINOGEN 0.2 E.U./dl (0.2-1.0)
[2019-05-26 16:37] VITALS: BP 122/53
[2019-05-26 17:23] LABS: HEMATOCRIT 29.4 % (42.0-52.0); HEMOGLOBIN 9.5 gm/dL (14.0-18.0)
[2019-05-26 20:57] VITALS: BP 104/73
--- NOTE | 2019-05-27 04:53 | NUR ---
ASSUMED PT CARE AT 1900 WITH NO SIGN OF DISTRESS, PT IS ALERT BUT FORGETFUL. NO FAMILY AT BEDSIDE, BUT LATER ON DAUGHTER ARRIVES. PT IS LAYING IN BED COMOFORTABLE. FALL PRECAUTION IN PLACE. ASSESSMENT COMPLETED AND DOCUMENTED. SCHEDULED MEDS ADMINISTERED TO PT. PT TOLERATED PO INTAKE. DAUGHTER DID NO SIGN CONSENT FOR SCHEDULED COLONSCOPY AND EGD BECAUSE SHE WANTED TO HAVE FURTHER DISCUSSION WITH OTHER FAMILY MEMBERS AND PHYSICIAN. PT IS NPO AFTER MIDNIGHT FOR SCHEDULED EGD/COLONOSCOPY. PAIN MEDS ADMINISTERED TO PT. PT IS STABLE THORUGHOUT THE NIGHT. DENIES ANY FURTHER NEEDS AT THIS TIME.
[2019-05-27 04:55] VITALS: BP 114/50
[2019-05-27 05:45] LABS: ABSOLUTE NEUTROPHILS 6.7 thou/uL (1.4-8.2); BASOPHILS 0.1 % (0.0-2.0); HEMATOCRIT 22.8 % (42.0-52.0); LYMPHOCYTES 16.6 % (24.0-44.0); MCH 27.3 pg (26.0-34.0); MCHC 32.8 g/dL (28.0-37.0); MCV 83.1 fL (80.0-100.0); MONOCYTES 2.1 % (1.0-8.0); PLATELET COUNT 348 thou/uL (150-400); POLYS 81.2 % (36.0-66.0); RBC 2.74 mil/uL (4.50-6.00); RDW 16.2 % (10.5-14.5); WBC 8.2 thou/uL (4.0-11.0)
[2019-05-27 05:56] LABS: CALCIUM 8.2 mg/dL (8.5-10.1); CREATININE 1.3 mg/dL (0.7-1.3); POTASSIUM 4.5 mmol/L (3.5-5.1)
[2019-05-27 05:58] LABS: HEMOGLOBIN 7.5 gm/dL (14.0-18.0)
[2019-05-27 08:28] VITALS: BP 117/56
[2019-05-27] MEDS ORDERED: HYDROCODON-ACE1 EAC7 PO (12:48)
--- NOTE | 2019-05-27 14:16 | NUR ---
FAXED REFERRAL TO [facility]PICE [facility] SPOKE WITH DELMIS IN ADM SHE RECEIVED REFERRAL AND STATED THAT KAROLINE HAS ARRANGED A RN TO MEET WITH PT'S FAMILY AT 1900 THIS EVENING TO DO BEDSIDE EVAL. FOR POSS TRANSFER TO [facility]. DP TO FOLLOW.
[2019-05-27 15:56] VITALS: BP 103/41
--- NOTE | 2019-05-27 16:34 | NUR ---
Full Time met with the pt's dtrs Carol and Aaron this afternoon. They are interested in learning more about hospice and options for care at home. They are not sure they are ready for hospice as they do want the pt to get some aggressive tx measures. They declined EGD/Colon per GI but they do want blood transfusion if his hgb is lower tomorrow. 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 Pt will likely need 24hr care/supervision at mt due to weakness. Family was hoping hosp[facility], [facility] or the [facility]. Family educated on services and insurance benefits. They will discuss their schedules and see who can stay with him while Carol is at work. They are receptive to hospice info visit. Options reviewed. hospice selected and referral sent via the mt store planner. hospice to meet with family vernaight at 7pm. Family aware. Son to be here at the meeting as well. [facility] can readmit at mt and will need orders should they opt to return home with HH. Full Time spoke with the [place] homemaker program [facility] Snow and left message to ask for additional service hours. [facility] can start Thursday for 2hrs and again on Thursday for 2 hours. Support provided. Care team updated. Home later this weekend when hgb stable with either HH or hospice. hospice [phone], fax [phone] [facility] [phone], fax [phone]
[2019-05-27 17:01] LABS: HEMATOCRIT 21.3 % (42.0-52.0); HEMOGLOBIN 7.3 gm/dL (14.0-18.0)
--- NOTE | 2019-05-27 19:39 | NUR ---
RECEIVED REPORT AROUND 0730; PT. ON BED; RESTING WITH EYES CLOSED; DURING ASSESSMENT SLEEP INTERRUPT; NPO; AM MEDICATION GIVEN; CHECK CHARTING; DAUGHTERS REQUESTED MEETING WITH DR. ZAMORANO; PHYSICIAN NOTIFIED; MEETING BETWEEN DR. ZAMORANO, HUNG & BOARD SAW RUNNER AROUND 1130; NO EGD OR COLOSTOMY PERFORMED; CODE STATUS CHANGE TO DNR PER ORDERS; PT. ABLE TO HAVE LUNCH & DINNER; C/O PAIN OVER BODY; PER DAUGHTER REPORT PT. TAKES HYDROCONE AT HOME; PHYSICIAN NOTIFIED; ORDERS RECEIVED; PAIN RE-ASSESSMENT PT. SLEEPING; MONITORING; ASSESSMENT CHARGED; FOLLOWING POC; PASSED ON REPORT;
[2019-05-27 21:03] VITALS: BP 101/41
[2019-05-28 04:45] VITALS: BP 113/61
--- NOTE | 2019-05-28 05:06 | NUR ---
ASSUMED PT CARE AT 1900. FAMILY AT BEDSIDE. PT IS STABLE. DENIES ANY NEED. FAMILY MET WITH HOSPICE NURSE TO DISCUSS PLAN OF CARE FOR PATIENT. PT IS STABLE. ASSESSMENT COMPLETED AND DOCUMENTED. VITAL SIGNS STABLE, LOW BLOOD PRESSURE. SCHEDULED MEDS AMDINISTERED TO PT. PT TOLERATED PO INTAKE. BATH GIVEN TO PATIENT. PAIN MED ADMINISTERED REQUESTED. DENIES ANY FURTHER NEEDS AT THIS TIME.
[2019-05-28 07:06] LABS: HEMATOCRIT 21.4 % (42.0-52.0); HEMOGLOBIN 7.3 gm/dL (14.0-18.0); MCH 28.3 pg (26.0-34.0); MCHC 34.3 g/dL (28.0-37.0); MCV 82.6 fL (80.0-100.0); RBC 2.6 mil/uL (4.50-6.00); RDW 16.1 % (10.5-14.5); WBC 10.4 thou/uL (4.0-11.0)
[2019-05-28 08:00] VITALS: BP 114/50
[2019-05-28 17:56] LABS: HEMATOCRIT 22.9 % (42.0-52.0); HEMOGLOBIN 7.8 gm/dL (14.0-18.0)
--- NOTE | 2019-05-28 18:12 | NUR ---
PT DAUGHTERS HAVE CALLED MULTIPLE TIMES TODAY, THEY STATE THAT THE PT AND THEM ARE DECIDING ABOUT HOSPICE STILL, THEY SAID THEY HAVE COME TO TERMS WITH IT BUT THE PT WANTS 24 MORE HOURS TO DECIDE. ONE DAUGHTER STATES SHE WOULD FEEL MORE COMFORTABLE IF THE PT HAS A HGB RECHECK IN THE MORNING, SHE STATES SHE WANTS HIM TO GET A TRANSFUSION IF HE NEEDS IT BEFORE HE LEAVES SO THEY HAVE MORE TIME WITH HIM AT HOME PER HER. PT UP TO SIDE OF BED FOR MEALS AND BSC TODAY. PT DID NOT HAVE ANY BLOODY STOOLS TODAY, THOUGH STOOL IS STILL LOOSE. PT ON HOME 2L NC. PROGRESSING TOWARDS GOAL.
[2019-05-28 19:30] VITALS: BP 102/61
--- NOTE | 2019-05-29 04:56 | NUR ---
ASSUMEED PT CARE AT 1900. PT IS LAYING IN BED. NO SIGN OF DISTRESS NOTED IN PT. PT IS STABLE. DAUGHTER VISITED WITH PATIENT. DAUGHTER STATED THAT PATIENT IS STILL WAITING TO MAKE DECISION ABOUT GOING HOME WITH HOSPICE. FALL PRECAUTION IN PLACE. ASSESSMENT COMPLETED AND DOCUMENTED. SCHEDULED MEDS ADMINISTERED TO PT. PT TOLERATED PO INTAKE. PAIN MED ADMINISTERED TO PT REQUESTED. DENIES ANY FURTHER NEEDS AT THIS TIME.
[2019-05-29 05:00] VITALS: BP 102/61
[2019-05-29 06:28] LABS: HEMATOCRIT 20.9 % (42.0-52.0); HEMOGLOBIN 7.1 gm/dL (14.0-18.0); MCH 27.7 pg (26.0-34.0); MCHC 33.9 g/dL (28.0-37.0); MCV 81.9 fL (80.0-100.0); RBC 2.55 mil/uL (4.50-6.00); RDW 16.1 % (10.5-14.5); WBC 8.2 thou/uL (4.0-11.0)
[2019-05-29 11:11] VITALS: BP 98/49
[2019-05-29] MEDS ORDERED: CARAFATE 1 GM TA1 G1 PO (15:01)
[2019-05-29] MEDS ORDERED: AUGMENTIN 875-1 EACH PO (15:04)
[2019-05-29] MEDS ORDERED: PROTONIX40 M2 PO (15:04)
[2019-05-29] MEDS ORDERED: METRONIDAZOLE500 M4 PO (15:09)
[2019-05-29 15:40] VITALS: BP 98/49
--- NOTE | 2019-05-29 15:56 | NUR ---
PT CARE ASSUMED APPROX 0700. ASSESSMENT CHARTED. PT DENIES SOA. REPORTS 8/10 BACK PAIN THIS SHIFT. REPORTS ADEQUATE PAIN MANAGEMENT WITH MEDS GIVEN. VSS. UP WITH 1 PERSON MIN ASSIST. PT TO DISCHARGE AT THIS TIME. FAMILY REPORTS THAT HOME HEALTH HAS BEEN ARRANGED AND PREVIOUSLY AGREED ON SUPERVISION WILL BE PROVIDED AT HOME. DISCHARGE EDUCATION DONE WITH PT AND CLAY ANDUJAR. BOTH DENY QUESTIONS OR CONCERNS REGARDING POST HOSPITAL CARE. IV OUT, TELE BOX OFF. HOSPITAL STAFF TO ESCORT PT OUT VIA WHEELCHAIR TIMELY.
[2019-05-30 12:50] VITALS: BP 98/49
[2019-05-30 12:53] VITALS: BP 98/49
--- NOTE | 2019-05-30 13:06 | NUR ---
PT DISCHARGED ON 05/29 TO HOME WITH [facility] FAXED DC ORDERS/SUMMARY AND RECEIVED CONFIRMATION THEY WILL NOTIFY PT TIME OF VISITS.
--- NOTE | 2019-05-31 08:39 | HC ---
[facility] [place] [address] CONSULTATION Name: SAI REGALADO Room #: 210-P [facility] IN M.R.#: [id number] Admission: 05/23/19 Attend Phys: Leroy Larkin MD Discharge: 05/29/19 Date of : 36 Report #: [id number] THIS REPORT FOR: //name// CC: Leroy Hebert REASON FOR CONSULTATION: Hypernatremia. HISTORY OF PRESENT ILLNESS: An 78-year-old with past medical history of hypertension; terminal COPD; bladder cancer; terminal heart failure with an ejection fraction of around 30%, status post bladder cancer surgery, resection, urostomy, status post left nephrostomy tube with known chronic obstructions of the left ureter, who receives his care at the [facility]. The patient presented with dull aching pain localized to the left chest wall. He graded it as 5/10. He tells me that he is being treated for pneumonia by his primary care physician. He lives with his family. He reported to the Emergency Room having the above-mentioned symptoms. He was found to have a mildly elevated troponin. He was also found to have a mildly elevated serum sodium at 147. I am being consulted to manage his electrolyte issues. Recently, there had been an increase in the dose of his Lasix by his shuttle van driver. The patient was deemed by his previous shuttle van driver to be not a candidate for any intervention. PAST MEDICAL HISTORY: 1. Nonischemic cardiomyopathy. 2. Rheumatoid arthritis. 3. COPD, oxygen dependent. 4. Pituitary tumor. 5. Bladder cancer. 6. Hyperlipidemia. 7. Coronary artery disease. 8. Post left nephrostomy tube with multiple exchanges. 9. Post right total shoulder repair. 10. Prostatectomy. 11. Bladder cancer surgery, unknown details. 12. Appendectomy. FAMILY HISTORY: No known chronic kidney disease, but significant for hypertension. SOCIAL HISTORY: No drug or alcohol abuse. He lives with his family. MEDICATIONS: 1. Amoxicillin. 2. Carvedilol. 3. Lisinopril. 4. Lasix. [facility] [address] [place] [address] CONSULTATION Name: [facility] Room #: [address] [place] [address]..#: [id number] Admission: 05/23/19 Attend Phys: Leroy Larkin MD Discharge: 05/29/19 Date of : 36 Report #: [id number] 5. Levothyroxine. REVIEW OF SYSTEMS: GENERAL: Significant for weakness. CARDIOVASCULAR: As per the history of present illness. PULMONARY: Significant for occasional dyspnea on exertion. No cough or hemoptysis. GASTROINTESTINAL: No nausea or vomiting. GENITOURINARY: As per the history of present illness regarding his urostomy and his nephrostomy tube. PHYSICAL EXAMINATION: VITAL SIGNS: Temperature 37.5, blood pressure 111/55. GENERAL: Ill looking, emaciated. HEAD AND NECK: No jugular venous distention. CHEST: No crackles. CARDIOVASCULAR: No rub detected. ABDOMEN: Soft, nontender. EXTREMITIES: Lower extremities, no edema. SKIN: There is a right Port-A-Cath. This is on his right IJ. GENITOURINARY: There is a left percutaneous nephrostomy tube. LABORATORY DATA: Reviewed. Sodium is 147, potassium is 3.7. Chloride is 108, carbon dioxide is 35, BUN is 41, creatinine is 1.2. Troponin is mildly elevated at 1.14. IMPRESSION AND PLAN: 1. Terminal cardiomyopathy. 2. Hypernatremia. 3. Chronic kidney disease. 4. Hypertension. 5. Coronary artery disease. 6. Terminal chronic obstructive pulmonary disease, oxygen dependent. 7. Chronic left urethral obstruction, status post nephrostomy tube. 8. Discontinue diuresis. 9. Hypernatremia due to poor free water intake. 10. Start D5W. 11. Medical management for his coronary artery disease. 12. Not a good candidate for any procedures. 13. [facility], has left nephrostomy tube. <ELECTRONICALLY SIGNED> By: Shyann Cardoso MD 05/31/19 [id number] Shyann Cardoso MD /nt
== END 2019-05-29 16:28 | disposition home health service (06) | DRG 280 ==
LOC: ER 17:33 → EROBS 18:36 → 2N 18:36 → 4S 20:17 → 2N 20:18
PROVIDERS: Hospitalist; Internal Medicine; Nurse Practitioner; Nurse Practitioner Family; ADMIT Hospitalist
PROC: 3E0234Z Introduction of Serum, Toxoid and Vaccine into Muscle, Percutaneous Approach (ICD-10-PCS; principal; 2019-05-25)
DX: I21.4 Non-ST elevation (NSTEMI) myocardial infarction (principal); I50.23 Acute on chronic systolic (congestive) heart failure; J18.9 Pneumonia, unspecified organism; E87.0 Hyperosmolality and hypernatremia; I42.9 Cardiomyopathy, unspecified; I13.0 Hypertensive heart and chronic kidney disease with heart failure and stage 1 through stage 4 chronic kidney disease, or unspecified chronic kidney disease; J98.11 Atelectasis; K92.0 Hematemesis; E44.0 Moderate protein-calorie malnutrition; N17.9 Acute kidney failure, unspecified; I47.2 Ventricular tachycardia; E27.40 Unspecified adrenocortical insufficiency; J44.1 Chronic obstructive pulmonary disease with (acute) exacerbation; J44.0 Chronic obstructive pulmonary disease with (acute) lower respiratory infection; I25.10 Atherosclerotic heart disease of native coronary artery without angina pectoris; E78.5 Hyperlipidemia, unspecified; G40.909 Epilepsy, unspecified, not intractable, without status epilepticus; E03.9 Hypothyroidism, unspecified; K21.9 Gastro-esophageal reflux disease without esophagitis; I48.91 Unspecified atrial fibrillation; M06.9 Rheumatoid arthritis, unspecified; F17.210 Nicotine dependence, cigarettes, uncomplicated; N18.3 Chronic kidney disease, stage 3 (moderate); G89.29 Other chronic pain; M54.9 Dorsalgia, unspecified; D63.8 Anemia in other chronic diseases classified elsewhere; E86.0 Dehydration; I95.9 Hypotension, unspecified; K52.9 Noninfective gastroenteritis and colitis, unspecified; I08.1 Rheumatic disorders of both mitral and tricuspid valves; Z66 Do not resuscitate; D35.2 Benign neoplasm of pituitary gland; Z90.79 Acquired absence of other genital organ(s); Z90.49 Acquired absence of other specified parts of digestive tract; Z85.46 Personal history of malignant neoplasm of prostate; Z79.899 Other long term (current) drug therapy; Z79.82 Long term (current) use of aspirin; Z88.8 Allergy status to other drugs, medicaments and biological substances; Z93.6 Other artificial openings of urinary tract status; Z99.81 Dependence on supplemental oxygen; Z82.49 Family history of ischemic heart disease and other diseases of the circulatory system; Z87.01 Personal history of pneumonia (recurrent); Z71.6 Tobacco abuse counseling; Z68.22 Body mass index [BMI] 22.0-22.9, adult; Z23 Encounter for immunization
CPT/HCPCS: 10081

== ENCOUNTER 2019-07-25 16:28 | Inpatient (IN) | payer OTHER ==
[~2019-07-25] VITALS: Ht 185.4 cm; Wt 95.4 kg
[~2019-07-25 16:28] MED LIST changes: +AUGMENTIN 875-1 EACH PO; +CARAFATE 1 GM TA1 G1 PO; +HYDROCODON-ACE1 EAC7 PO; +LACTULOSE10 GM/152 PO; +METRONIDAZOLE500 M4 PO; +PROTONIX40 M2 PO; +TYLENOL WITH CO1 TA1 PO
[2019-07-25 16:31] VITALS: BP 134/44
[2019-07-25 17:06] LABS: HEMOGLOBIN 9.3 gm/dL (14.0-18.0); MCH 24.9 pg (26.0-34.0); RBC 3.73 mil/uL (4.50-6.00); RDW 16.6 % (10.5-14.5)
[2019-07-25 17:08] LABS: HEMATOCRIT 28.9 % (42.0-52.0); MCHC 32.1 g/dL (28.0-37.0); MCV 77.5 fL (80.0-100.0); PLATELET COUNT 287 thou/uL (150-400); WBC 12.5 thou/uL (4.0-11.0)
[2019-07-25 17:15] LABS: CALCIUM 9.3 mg/dL (8.5-10.1); CREATININE 1.4 mg/dL (0.7-1.3); POTASSIUM 3.4 mmol/L (3.5-5.1)
[2019-07-25 17:21] LABS: ALBUMIN 3.5 g/dL (3.4-5.0); DIRECT BILIRUBIN 0.2 mg/dL (<0.1-0.2); TOTAL BILIRUBIN 0.4 mg/dL (<0.1-1.0); TOTAL PROTEIN 7.5 g/dL (6.4-8.2)
[2019-07-25 17:34] LABS: ABSOLUTE NEUTROPHILS 10.8 thou/uL (1.4-8.2)
[2019-07-25 17:35] LABS: TOXIC GRANULATION 1+
[2019-07-25 17:36] LABS: ANISOCYTOSIS 1+; PLATELET ESTIMATE NORMAL
[2019-07-25 18:35] LABS: URINE BILIRUBIN NEGATIVE (Negative); URINE BLOOD NEGATIVE (Negative); URINE CLARITY CLEAR; URINE COLOR YELLOW; URINE GLUCOSE-RANDOM* NEGATIVE (Negative); URINE KETONES NEGATIVE (Negative); URINE LEUKOCYTES-REFLEX TRACE (Negative); URINE PROTEIN (DIPSTICK) NEGATIVE (Negative); URINE UROBILINOGEN 0.2 E.U./dl (0.2-1.0)
[2019-07-25 18:36] LABS: URINE NITRITE-REFLEX POSITIVE (Negative)
[2019-07-25 18:43] LABS: BACTERIA-REFLEX >30 Many /HPF (None Seen); HYALINE CASTS 0-3 Few /LPF (None Seen); MUCUS 0-3 Light strn/LPF (None Seen)
[2019-07-25 18:44] LABS: URINE WBC-REFLEX 0-5 Rare /HPF (0-5)
[2019-07-25 18:45] LABS: AMORPHOUS URATES Few /LPF (None Seen)
[2019-07-25 18:46] LABS: SQUAMOUS 0-3 Few /LPF (0-3); URINE RBC None Seen /HPF (0-2)
[2019-07-25 20:16] LABS: BE(vivo) 6.5 mmol/L (-2 to +3); HCO3 34.4 mmol/L (22.0-26.0); sO2 89.9 % (92.0-98.0)
[2019-07-25 20:18] LABS: PCO2 70.6 mmHg (35.0-45.0); pH 7.306 (7.360-7.450)
[2019-07-25 20:54] VITALS: BP 113/43
[2019-07-25] MEDS ORDERED: TYLENOL WITH CO1 TA1 PO (21:36)
[2019-07-25] MEDS ORDERED: PROAIR HFA8.5 GM INH (21:36)
[2019-07-25] MEDS ORDERED: ALENDRONATE SOD70 MG PO (21:37)
[2019-07-25] MEDS ORDERED: ASA81BEC PO (21:37)
[2019-07-25] MEDS ORDERED: VITAMIN D32000 UNI2 PO (21:38)
[2019-07-25] MEDS ORDERED: FUROSEMIDE 20 M20 MG PO (21:39)
[2019-07-25] MEDS ORDERED: NEURONTIN300 MG PO (21:39)
[2019-07-25] MEDS ORDERED: IRON325 PO (21:39)
[2019-07-25] MEDS ORDERED: KEPPRA1000 MG PO (21:40)
[2019-07-25] MEDS ORDERED: LEVO-T50 MCG PO (21:40)
[2019-07-25] MEDS ORDERED: LISINOPRIL2.5 MG PO (21:41)
[2019-07-25] MEDS ORDERED: ANORO ELLIPTA1 EACH INH (21:41)
[2019-07-25 22:47] LABS: BE(vivo) 2.4 mmol/L (-2 to +3); HCO3 29.5 mmol/L (22.0-26.0); PCO2 59.3 mmHg (35.0-45.0); PO2 57.9 mmHg (80.0-100.0)
[2019-07-25 22:49] LABS: pH 7.314 (7.360-7.450)
[2019-07-26] VITALS (49 sets, daily range): BP systolic 91–139; BP diastolic 50–97
[2019-07-26 00:15] LABS: HCO3 29.1 mmol/L (22.0-26.0); PCO2 58.8 mmHg (35.0-45.0); sO2 91.6 % (92.0-98.0)
[2019-07-26 00:16] LABS: pH 7.312 (7.360-7.450)
[2019-07-26 06:16] LABS: HEMATOCRIT 29.7 % (42.0-52.0); HEMOGLOBIN 9.4 gm/dL (14.0-18.0); MCH 24.6 pg (26.0-34.0); MCHC 31.6 g/dL (28.0-37.0); MCV 77.9 fL (80.0-100.0); RBC 3.82 mil/uL (4.50-6.00); RDW 16.6 % (10.5-14.5); WBC 18.4 thou/uL (4.0-11.0)
[2019-07-26 06:28] LABS: CALCIUM 8.2 mg/dL (8.5-10.1); CREATININE 1.7 mg/dL (0.7-1.3)
--- NOTE | 2019-07-26 08:12 | NUR ---
0000 RECIEVED PT FROM ER TO ICU 241. PT DROSY BUT WILL AWAKEN. LOW GRADE TEMP. BP WNL ON LEVOPHED AT 25MCG/MIN TO KEEP MAP >60. ON BIPAP. ABG CALLED TO DR BELLO. ORDERED RECIEVED. ON SEPSIS PROTOCOL WITH MAINTAINCE FLUIDS INFUSING. CONT PLAN OF CARE
--- NOTE | 2019-07-26 08:16 | NUR ---
0600 PT MORE AWAKE. FI02 DOWN TO 70%. DAUGHTER SAHRA BARONE PT DURING NOC. WEANING LEVOPED DOWN. UO ADEQUATE. CONTINUE PLAN OF CARE
--- NOTE | 2019-07-26 08:59 | EKG ---
[place] [address] [facility] [place] [address] ELECTROCARDIOGRAM REPORT Name: SAI REGALADO Room #: 241-P ADM IN M.R.#: [id number] Admission: 07/25/19 Attend Phys: Leroy Larkin MD Discharge: Date of : 36 Report #: [id number] THIS REPORT FOR: //name// [facility] ED Test Date: 2019-07-25 Test Time: 18:19:20 Pat Name: SAI REGALADO Department: Room: 241 Gender: M [employer] Service Estimator: jngum : 1940 Requested By: Carly Pena Order Number: [id number] MD: Broderick Harris Measurements Intervals Gilbert Rate: 117 P: DE: QRS: 72 QRSD: 104 T: 156 QT: 348 QTc: 486 Interpretive Statements Atrial fibrillation Paired ventricular premature complexes Abnormal R-wave progression, late transition Nonspecific ST and T wave abnormality Compared to ECG 05/24/2019 07:17:10 Ventricular premature complex(es) now present Sinus rhythm no longer present nonspecific change in the ST and T-wave segments Electronically Signed On 07-26-2019 8:58:52 DRY END TESTER by Broderick Harris [email or web address] <ELECTRONICALLY SIGNED> By: Broderick Harris MD, [facility] 07/26/19 0858 [id number] 18 Broderick Harris MD, [facility] /EPI
--- NOTE | 2019-07-26 11:11 | NUR ---
Nutrition: Assessed due to consult received related to "difficulty eating". Admit with HCAP. Familiar w/ pt from recent admit. Usual intake is good and nsg reports pt ate well this am without issues. On regular diet. Hx COPD, CKD3, HTN, HLD, bladder CA. Weight of 202# taken per bedscale. UBW is around 165#. Follow trends for accuracy. Very [place]. Pt does agree to Ensure BID due to report of decreased appetite recently likely related to SOB. Place as low risk with interventions in place.
--- NOTE | 2019-07-26 15:56 | NUR ---
INITIAL ASSESSMENT: Pt evaluated for d/c planning needs. Reviewed chart and spoke with nurse, pt and pt's daughter. Pt is EEK. Dtr said that pt had hearing aids in the past, but not currently. Pt lives at home with dtr. He has electric scooter, oxygen and hospital bed at home. Pt was able to transfer himself for toileting and needed assistance with other ADL's. Pt is currently on service with [facility] and has private duty caregivers through [facility]. Pt was hospitalized at [facility] in May and had informational visit with [facility]. According to dtr, pt chose to decline hospice. Dtr said that her sister will be coming to stay with them when pt is ready for d/c home again. She is hopeful pt will be able to return home on d/c from hospital. Will remain available to assist as needed.
--- NOTE | 2019-07-26 17:40 | NUR ---
PT IS REAL HARD OF HEARING. PT HAS RA PAIN AND GENERALIZED PAIN. PAIN MEDS GIVEN SEE MAR FOR TIME OF ADMINISTRATION. LUNGS ARE DIMINISHED. PT HAS A COUGH WITH BEIGE SPUTUM. IN ISOLATION FOR MRSA. PT HAS A ILEAL CONDUIT BAG. AND A NEPHROSTOMY BAG TO DRAINAGE. REPOSITION AND UP TO CHAIR TODAY FOR NURSING CARE. WILL CONTINUE TO ASSESS AND MONITOR PER NURSING
[2019-07-27] VITALS (36 sets, daily range): BP systolic 88–130; BP diastolic 54–87
--- NOTE | 2019-07-27 08:22 | NUR ---
OSTOMY CARE; called to see pt due to difficulty w/ correct pouch for urostomy, had colostomy pouch on ileo conduit, changed to blanco precut convex 08/17' pouch, connected to dep drainage, stoma pink viable slightly budded, clear yellow urine noted, peristomal skin intact, pt cooperative but very [place], states he uses a different appliance at home, did not bring supplies to hosp, informed pt this product will work ok, supplies left at bs, staff assistant informed, will follow prn
[2019-07-27 14:11] LABS: HEMATOCRIT 27.4 % (42.0-52.0); HEMOGLOBIN 8.6 gm/dL (14.0-18.0); MCH 24.5 pg (26.0-34.0); MCHC 31.4 g/dL (28.0-37.0); MCV 78.2 fL (80.0-100.0); PLATELET COUNT 195 thou/uL (150-400); RBC 3.51 mil/uL (4.50-6.00); RDW 16.7 % (10.5-14.5); WBC 29.4 thou/uL (4.0-11.0)
[2019-07-27 14:16] LABS: BE(vivo) -4.7 mmol/L (-2 to +3); HCO3 24.4 mmol/L (22.0-26.0); PO2 65.6 mmHg (80.0-100.0); sO2 86.4 % (92.0-98.0)
[2019-07-27 14:18] LABS: PCO2 69.3 mmHg (35.0-45.0); pH 7.164 (7.360-7.450)
[2019-07-27 14:22] LABS: CALCIUM 7.9 mg/dL (8.5-10.1); CREATININE 1.8 mg/dL (0.7-1.3); POTASSIUM 4.5 mmol/L (3.5-5.1)
[2019-07-27 14:37] LABS: ABSOLUTE NEUTROPHILS 28.8 thou/uL (1.4-8.2); MICROCYTES 1+; NUCLEATED RBCS 1 /100WBC
[2019-07-27 14:38] LABS: TARGET CELLS 1+
[2019-07-27 14:39] LABS: POLYCHROMASIA OCCASIONAL
--- NOTE | 2019-07-27 19:42 | NUR ---
PT ALERT AND ORIENTED TIMES FOUR THIS MORNING, BUT BECAME VERY IMPUSLIVE AND AGITATED THIS AFTERNOON. PT ALSO CONFUSED. PT PLACED ON BIPAP. VSS. PT TOLERATES MEDS AND MEALS. PT NOT PROGRESSING TOWRADS POC GOALS AT THIS TIME.
[2019-07-27 19:43] LABS: URINE BILIRUBIN NEGATIVE (Negative); URINE BLOOD 2+ (Negative); URINE CLARITY SL CLOUDY; URINE COLOR YELLOW; URINE GLUCOSE-RANDOM* NEGATIVE (Negative); URINE KETONES NEGATIVE (Negative); URINE LEUKOCYTES-REFLEX TRACE (Negative); URINE NITRITE-REFLEX NEGATIVE (Negative); URINE PROTEIN (DIPSTICK) 1+ (Negative); URINE SPECIFIC GRAVITY 1.015 (1.005-1.035)
[2019-07-27 20:13] LABS: COARSE GRANULAR CASTS 0-3 Few /LPF (None Seen); HYALINE CASTS 0-3 Few /LPF (None Seen); SQUAMOUS 0-3 Few /LPF (0-3); URINE WBC-REFLEX 6-15 Few /HPF (0-5)
[2019-07-27 20:14] LABS: AMORPHOUS URATES Few /LPF (None Seen); BACTERIA-REFLEX 1-9 Few /HPF (None Seen); URINE RBC 3-10 Few /HPF (0-2)
[2019-07-27 21:48] LABS: BE(vivo) -2.8 mmol/L (-2 to +3); HCO3 24.5 mmol/L (22.0-26.0); PCO2 55.9 mmHg (35.0-45.0); PO2 86.7 mmHg (80.0-100.0); sO2 95.1 % (92.0-98.0)
[2019-07-28] VITALS (29 sets, daily range): BP systolic 98–145; BP diastolic 50–101
[2019-07-28 05:14] LABS: BE(vivo) -1.5 mmol/L (-2 to +3); HCO3 25.4 mmol/L (22.0-26.0); PCO2 54.1 mmHg (35.0-45.0); PO2 81.3 mmHg (80.0-100.0); sO2 94.6 % (92.0-98.0)
[2019-07-28 05:15] LABS: pH 7.289 (7.360-7.450)
[2019-07-28 06:18] LABS: HEMATOCRIT 25.1 % (42.0-52.0); HEMOGLOBIN 7.9 gm/dL (14.0-18.0); MCH 24.5 pg (26.0-34.0); MCHC 31.6 g/dL (28.0-37.0); MCV 77.4 fL (80.0-100.0); PLATELET COUNT 192 thou/uL (150-400); RBC 3.24 mil/uL (4.50-6.00); RDW 16.8 % (10.5-14.5)
[2019-07-28 06:38] LABS: ALBUMIN 2.6 g/dL (3.4-5.0); CALCIUM 7.5 mg/dL (8.5-10.1); CREATININE 1.9 mg/dL (0.7-1.3); MAGNESIUM 2.2 mg/dL (1.8-2.4); POTASSIUM 3.7 mmol/L (3.5-5.1); TOTAL BILIRUBIN 1.1 mg/dL (<0.1-1.0); TOTAL PROTEIN 6.4 g/dL (6.4-8.2)
[2019-07-28 07:41] LABS: ANISOCYTOSIS 1+
[2019-07-28 07:44] LABS: ABSOLUTE NEUTROPHILS 22.5 thou/uL (1.4-8.2)
--- NOTE | 2019-07-28 08:30 | NUR ---
DR. FELTON HERE. UPDATED PT RESTLESS AND SEEMS TO BE IN PAIN. MD STATES HE WILL CONSULT WITH DR. BELLO AND CALL ME WITH WHAT THEY DECIDED.
--- NOTE | 2019-07-28 09:00 | NUR ---
DR. BELLO HERE. REPORTED PT RESTLESS AND IN PAIN. NO NEW ORDERS. PT REMIANS ON BIPAP, TOLORATING WELL.
--- NOTE | 2019-07-28 10:00 | NUR ---
TO CT FOR CT OF CHEST VIA BED ON MONITOR. PT TOLORATED WELL.
--- NOTE | 2019-07-28 11:15 | NUR ---
PT FAMILY MEMBER Carol called. She seemed upset about a number of issues specifically why is pt WBC elevated. Why Cardiology and Nephrology have not been consulted etc. Dr. Saenz paged and given her phone number to update and emotional support given. Also Dr. Manzanares notified that she was upset and needed an update.
--- NOTE | 2019-07-28 12:00 | NUR ---
Notified that pt has not had a BM since admission. states he will put orders in.
--- NOTE | 2019-07-28 14:00 | NUR ---
DR. FELTON CALLED RE AFIB RVR. PT VERY AGITATED HALDOL GIVEN WITH GOOD RESULTS. HR CAME DOWN AFTER HALDOL. KUB RESULTS ALSO REPORTED TO DR. FELTON.
--- NOTE | 2019-07-28 14:49 | NUR ---
PT CONTINUES TO REQUIRE BIPAP AND UNABLE TO WORK WITH THERAPIES AT THIS TIME.
--- NOTE | 2019-07-28 18:00 | NUR ---
DR. EVANS LOPEZ CALLED TO REPORT + BLOOD CULTURE. UPDATE GIVEN. TO ROUND ON PT.
--- NOTE | 2019-07-28 19:24 | NUR ---
PT SOMEWHAT PROGRESSING TOWARDS GOALS. FALLING OFF WITH BREATHING. STILL REQUIRING BIPAP. REMAINS AGITATED AT TIMES. HALDOL GIVEN WITH GOOD RESULTS. UPDATED PT DAUGHTER. PT DAUGHTER STATES NEPHROSTOMY TUBE IS 10 YEARS OLD. IT IS ONLY FLUSHED EVERY 3MONTHS WHEN THEY TAKE HIM TO IR TO HAVE DRESSING CHANGED. PT DAUGHTER DID NOT KNOW WHEN THE LAST TIME THEY HAVE DONE THIS BUT PROMISED TO BRING IN THE DRESSING SO THAT NURSING CHOULD CHANGE IT.
--- NOTE | 2019-07-28 23:37 | NUR ---
Dr. Jimenes in to see pt at 2230; ordered NG to LIS for decompression of abdomen. Attempts made by two nurses for a total of 5 without success. Tube goes down easily, does not curl in mouth or back of throat, but unable to auscultate or withdraw gastric contents. Pt not in distress, no nausea or vomitting; will allow pt to rest for a while and then have another staff member attempt placement.
[2019-07-29] VITALS (32 sets, daily range): BP systolic 92–142; BP diastolic 46–117
--- NOTE | 2019-07-29 05:54 | NUR ---
Pt has remained on bipap on AVAPS mode, 30% FiO2. Sat remains > 92%. Pt given Haldol when aggitated, Fentanyl x1 for bilateral shoulder pain. Urine output approximately 30cc/hr. Have been unable to place NG despite multiple attempts.
--- NOTE | 2019-07-29 11:45 | NUR ---
OSTOMY CARE pouch edges loose, but pouch still intact, new pouch blanco convex 1 08/17' applied, stoma pink viable slightly budded, peristomal skin intact, cooperative, supplies left at bs, connected to dep drainage, staff scientist informed RECOMMENDATIONS cont w/ precut blanco convex 1 08/17' change 2x week and prn
--- NOTE | 2019-07-29 16:39 | NUR ---
PT CONTINUES TO REQUIRE BIPAP AND UNABLE TO WORK WITH THERAPIES AT THIS TIME. IT IS ANTICPATED THAT PT WILL REMAIN THROUGH THE WEEKEND.
[2019-07-30] VITALS (24 sets, daily range): BP systolic 95–131; BP diastolic 52–78
[2019-07-30 05:27] LABS: BE(vivo) -5.1 mmol/L (-2 to +3); HCO3 21.3 mmol/L (22.0-26.0); PCO2 45.9 mmHg (35.0-45.0); PO2 92.4 mmHg (80.0-100.0); sO2 96.2 % (92.0-98.0)
[2019-07-30 05:28] LABS: pH 7.285 (7.360-7.450)
[2019-07-30 06:00] LABS: HEMOGLOBIN 7.6 gm/dL (14.0-18.0); MCH 24.5 pg (26.0-34.0); MCHC 31.8 g/dL (28.0-37.0); MCV 76.9 fL (80.0-100.0); PLATELET COUNT 172 thou/uL (150-400); RBC 3.12 mil/uL (4.50-6.00); RDW 16.9 % (10.5-14.5); WBC 11.9 thou/uL (4.0-11.0)
[2019-07-30 06:09] LABS: ALBUMIN 2.4 g/dL (3.4-5.0); CALCIUM 7.4 mg/dL (8.5-10.1); POTASSIUM 3.6 mmol/L (3.5-5.1); TOTAL BILIRUBIN 2.1 mg/dL (<0.1-1.0); TOTAL PROTEIN 5.9 g/dL (6.4-8.2)
[2019-07-30 07:04] LABS: ABSOLUTE NEUTROPHILS 10.8 thou/uL (1.4-8.2); ANISOCYTOSIS 1+; METAMYELOCYTES 1 %
[2019-07-30 07:05] LABS: POLYCHROMASIA 1+; TARGET CELLS 2+
--- NOTE | 2019-07-30 10:09 | NUR ---
SPOKE WITH DR BELLO ABOUT PT'S INCREASE WORK OF BREATHING. INSTRUCTED TO HAVE RT ABDJUST BIPAP AND SETTING AROUNG NG TUBE TO PROVIDE POSITIVE VENTILATION. PT NOW ON BIPAP. WILL CONTINUE TO ASSESS.
[2019-07-30 11:26] LABS: CALCIUM 7.9 mg/dL (8.5-10.1); CREATININE 2.1 mg/dL (0.7-1.3); POTASSIUM 3.6 mmol/L (3.5-5.1)
--- NOTE | 2019-07-30 15:16 | NUR ---
PT OFF BIPAP AND BACK ON NASAL CANNULA.
[2019-07-31] VITALS (11 sets, daily range): BP systolic 111–128; BP diastolic 60–96
--- NOTE | 2019-07-31 04:51 | NUR ---
Daughter Aaron was in to visit the pt, she expressed concern about her father's code status and would like to have a meeting with the hospitalist, case management, Spiritual Care about Palliative Care and/or Hospice. The family would like to meet today at 1300, if possible to discuss his POC. Pt remains restless/anxious, he had minimal relief from the low dose fentanyl and haldol. He becomes tachycardic/tachypneic with activity, and attempts to dislodge the BiPaP mask, and repeatedly ask to have the mittens taken off.
[2019-07-31 09:13] LABS: BE(vivo) -5.6 mmol/L (-2 to +3); HCO3 20.6 mmol/L (22.0-26.0); PCO2 43.6 mmHg (35.0-45.0); PO2 84.2 mmHg (80.0-100.0); sO2 95.2 % (92.0-98.0)
[2019-07-31 09:15] LABS: pH 7.292 (7.360-7.450)
[2019-07-31 09:19] LABS: HEMATOCRIT 25.4 % (42.0-52.0); HEMOGLOBIN 8.4 gm/dL (14.0-18.0); MCH 24.9 pg (26.0-34.0); MCHC 32.9 g/dL (28.0-37.0); MCV 75.7 fL (80.0-100.0); PLATELET COUNT 194 thou/uL (150-400); RBC 3.36 mil/uL (4.50-6.00); RDW 16.9 % (10.5-14.5); WBC 8.3 thou/uL (4.0-11.0)
[2019-07-31 09:28] LABS: CALCIUM 8.5 mg/dL (8.5-10.1); CREATININE 2.1 mg/dL (0.7-1.3); MAGNESIUM 2.6 mg/dL (1.8-2.4); POTASSIUM 3.7 mmol/L (3.5-5.1)
[2019-07-31 09:42] LABS: ABSOLUTE NEUTROPHILS 7.6 thou/uL (1.4-8.2); BURR CELLS OCCASIONAL; NUCLEATED RBCS 10 /100WBC; PLATELET ESTIMATE NORMAL; TARGET CELLS 2+
[2019-07-31 09:43] LABS: ANISOCYTOSIS 1+
--- NOTE | 2019-07-31 17:04 | NUR ---
ASSESSMENTS AND INTERVENTIONS DOCCUMENTED. PATIENT NOT TOLERATING BIPAP. CONTINUOUSLY ATTEMPTS TO REMOVE IT. PATIENT EDUCATED. DAUGHTER AT BEDSIDE. DAUGHTER UPDATED ABOUT POC. DAUGHTER WANTING TO HAVING FAMILY MEETING AT 1300. DAUGHTER ASKING ABOUT MEDICAL EQUIPMENT AND REMOVING NG TUBE. DAUGHTER EDUCATED ABOUT PURPOSE AND USE. DR. FELTON AT BED SIDE DISCUSSING PATIENT CURRENT STATUS. ONE OF THE DAUGHTERS BECAME TEARFUL. AFTER THE MEETING WITH PURNIMA, DPOA DECIDED TO CHANGE CODE STATUS TO DNR. DR. FELTON PAGED AND ORDERS FOR CODE STATUS CHANGE ARE PENDING.
--- NOTE | 2019-07-31 17:12 | NUR ---
ASSESSMENTS AND INTERVENTIONS DOCCUMENTED. PATIENT REAMINS ON THE BIPAP AND IN SOFT MITTEN RESTRAINTS. PATIENT NOT TOLERATING BIPAP. PATIENT EDUCATED BUT STILL ATTEMPTING TO REMOVE MASK. 1 DAUGHTER AT BEDSIDE. DAUGHTER EDUCATED ABOUT MEDICAL EQUIPMENT. MEETING WITHDR.HURA REGALADO'S DAUGHTER SCHEDULED FOR 1300. DAUGHTERS INQUIRING ABOUT POC AND PROGNOSIS. DAUGHTER BECOMING TEARFUL. AFTER THE MEETING, DPOA REQUESTING TO CHANGE CODE STATUS FROM FULL CODE TO DNR. DR. FELTON PAGED AND ORDERS PENDING.
[2019-08-01] VITALS (25 sets, daily range): BP systolic 95–126; BP diastolic 44–86
--- NOTE | 2019-08-01 02:57 | NUR ---
ASSESSMENTS CHARTED, MEDS GIVEN DOCUMENTED. PATIENT CONTINUES NOT TO TOLERATE THE BIPAP, TRIES TO PULL MASK OFF CONTINUOUSLY. REMAINS RESTLESS. DAUGHTER AT BEDSIDE DURING SHIFT. ASKS IF TOMORROWS MEETING WITH SLUMBER ROOM ATTENDANT CAN BE MOVED TO 1500. DAUGHTER ALSO WONDERING WHEN TUBE FEEDINGS WILL BEGIN. Q2 TURNS CHARTED. DENIES PAIN.
[2019-08-01 09:44] LABS: HEMATOCRIT 27.7 % (42.0-52.0); HEMOGLOBIN 8.9 gm/dL (14.0-18.0); MCH 24.5 pg (26.0-34.0); MCHC 32.2 g/dL (28.0-37.0); MCV 76.1 fL (80.0-100.0); RBC 3.63 mil/uL (4.50-6.00); WBC 7.8 thou/uL (4.0-11.0)
[2019-08-01 09:49] LABS: CALCIUM 8.7 mg/dL (8.5-10.1); CREATININE 2.2 mg/dL (0.7-1.3); POTASSIUM 3.6 mmol/L (3.5-5.1)
--- NOTE | 2019-08-01 13:00 | NUR ---
FAXED REFERRAL TO HOSPICE SPOKE WITH INTAKE THEY RECEIVED REFERRAL AND HAVE ARRANGED MTG WITH FAMILY AT 1600 TODAY FOR INFO VISIT. DP TO FOLLOW.
--- NOTE | 2019-08-01 13:33 | NUR ---
CM ATTEMPTED PC TO PT'S DTR MYA LISTED DPOA IN SYSTEM AND LEFT VM. CM CALLED AND SPOKE WITH PT'S DTR CON VILLATORO SHE CONFIRMED THAT THEY HAD AN INFORMATIONAL MEETING SCHEDULED WITH HOSPICE THIS AFTERNOON AT 1600. SHE INDICATED THAT THEY WERE TOLD TO MEET WITH CM WELL TO DISCUSS OPTIONS. CM INDICATED THAT CM WOULD TRY TO BE AVAIABLE A LITTLE BEFORE 1400 TO MEET WITH THEM. THEY ASKED ABOUT HAVING NEW DPOA PAPERWORK NOTERIZED THEY CAN'T LOCATE THE PREVIOUS DOCUMENT. CM INDICATED THAT CM WOULD SEE IF THAT COULD BE COMPLTED. CM TO FOLLOW INDICATED WITH DC PLANNING.
--- NOTE | 2019-08-01 19:20 | NUR ---
family meet with case management today, would like to do home hospice in the near future. reposition for pt comfort. Dr. cardenas did not want to start nutrition today. pt spent approxmetly 4 hours off bipap today. pt progressing towards plan of care.
[2019-08-02] VITALS (19 sets, daily range): BP systolic 90–124; BP diastolic 50–74
--- NOTE | 2019-08-02 03:47 | NUR ---
Pt has been restless throughout this shift, especially after the BiPaP mask was placed. Around 0200, the mask was removed (per his request) for oral cares, and was left off for a while. His sats dropped quickly but did return to 86% and above, except when he moans, coughs or moves around, (which also happened when he WAS on BiPaP). He settles down for a short time, then calls out for family, he will emote discomfort with turns, has a weak, loose cough but looks more at ease when resting.
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
--- NOTE | 2019-08-02 13:03 | NUR ---
CM CALLED AND SPOKE WITH YARELIS IN INTAKE AT HOSPICE AND SHE INDICATED THAT CON BEATTY HAD MET WITH PT'S DTRS YESTERDAY. SHE INDICATED THAT PT IS GIP APPROPRIATE AND THAT THEY HAD REACHED OUT TO LEONARD AT THE [facility] TO CHECK ABOUT POSSIBLE COVERAGE FROM THEM FOR ADMISSION TO THE HOSPOICE HOUSE. CM CLARIFIED THAT FAMILY WAS AGREEABL WITH HOSPICE HOUSE ADMISSION AND SHE STATED YES. ES CALLED AND SPOKE WITH CON VILLATORO PT'S DTR FROM [place] AND SHE STATED THAT THEY HAD BEEN TOLD BY A PHYSICAIN THAT PT WOULD BE IN THE ICU FOR MAYBE ANOTHER WEEK AND THAT THEN THEY HOPED THEY WOULD BE ABLE TO BRING PT HOME WITH HELP FOR HOSPICE. ES ASKED IF THEY WERE INTERESTED IN PT ADMITTING TO [facility], AND SHE STATED THAT PT RESIDES WITH DTR MYA WHO HAS 3 SMALL KIDS AND THAT SOMETIMES SHE HAS TROUBLE PROVIDING CARES. DTR INDICATED THAT THEY AREN'T DECIDED AND ARE WANTING TO SEE TO HOW PT PROGRESSES. CM ATTEMPTED PC TO [facility] AND LEFT VM. CM TO FOLLOW INDICATED WITH DC PLANNING.
--- NOTE | 2019-08-02 14:13 | NUR ---
Nutrition: NPO x 4 days in ICU. If plan of care is aggressive and enteral not an option, REC standard TPN to reach 75 mL/hr to prevent further nutritional decline.
--- NOTE | 2019-08-02 18:35 | NUR ---
PATIENT ALERT AND CONFUSED. PAIN CONTROLLED WITH MEDICATION. ON BIPAP AT 40%, SHOWS SIGNS OF DYSPNEA WHEN ON NASAL CANNULA. NG TUBE INTACT TO LIS. VAIL DRAINING ADEQUATE OUTPUT. LEFT FLANK DRAIN SITE IN PLACE. PLAN DISCUSSED WITH PATIENT AND FAMILY. NO SIGNS OF ACUTE DISTRESS NOTED AT THIS TIME. WILL CONTINUE TO MONITOR.
[2019-08-02 22:09] LABS: INFLUENZA A Negative (Negative); INFLUENZA B Negative (Negative); METAPNEUMOVIRUS Negative (Negative); PARAINFLUENZA 1 Negative (Negative); PARAINFLUENZA 2 Negative (Negative); PARAINFLUENZA 3 Negative (Negative); RHINOVIRUS Negative (Negative); RSV A Negative (Negative); RSV B Positive (Negative)
[2019-08-03 00:15] VITALS: BP 100/60
[2019-08-03 04:01] VITALS: BP 114/66
[2019-08-03 05:44] LABS: HEMOGLOBIN 9.4 gm/dL (14.0-18.0); RBC 3.76 mil/uL (4.50-6.00); WBC 10.2 thou/uL (4.0-11.0)
[2019-08-03 05:45] LABS: HEMATOCRIT 28.7 % (42.0-52.0); MCH 25.1 pg (26.0-34.0); MCHC 32.8 g/dL (28.0-37.0); MCV 76.3 fL (80.0-100.0); PLATELET COUNT 219 thou/uL (150-400); RDW 17.5 % (10.5-14.5)
[2019-08-03 06:00] LABS: CALCIUM 8.2 mg/dL (8.5-10.1); CREATININE 2.2 mg/dL (0.7-1.3); POTASSIUM 3.9 mmol/L (3.5-5.1)
[2019-08-03 07:11] LABS: ABSOLUTE NEUTROPHILS 8.6 thou/uL (1.4-8.2); CORRECTED WBC 9.1 thou/uL (4.0-11.0); NUCLEATED RBCS 12 /100WBC; PLATELET ESTIMATE NORMAL
--- NOTE | 2019-08-03 10:57 | NUR ---
REPORT GIVEN TO BRIAN RICH TO ASSUME CARE. PT IS A NO CODE TRANSFERED TO 356 ON BIPAP WITH ALL BELONGINGS OF PT UNIT TO ASSUME CARE. NO ISSUES OR CONCERNS NOTED AT THIS TIME
[2019-08-03 11:50] VITALS: BP 113/61
[2019-08-03 14:59] VITALS: BP 120/43
[2019-08-03 17:50] VITALS: BP 99/59
[2019-08-03 19:20] VITALS: BP 113/56
--- NOTE | 2019-08-03 20:06 | NUR ---
pt is transfer from ICU , pt is on BIPAP with o2 35%, pt cannot follow commands, pt's vs are stable, pt will have Hospice evaluation tomorrow.
[2019-08-04 00:52] VITALS: BP 102/40
[2019-08-04 03:42] VITALS: BP 98/50
[2019-08-04 07:34] VITALS: BP 140/114
--- NOTE | 2019-08-04 08:43 | NUR ---
Patient was turned Q2 NOC and his heels were floated. Nursing aldo continue to monitor.
[2019-08-04 08:48] VITALS: BP 90/62
--- NOTE | 2019-08-04 14:31 | NUR ---
ES CALLED AND FOLLOWED UP WITH PT'S DTR CON AND SPOKE WITH HER REGARDING POSSIBLE LTAC STAY. SHE ASKED THAT ES CALLED AND SPEAK WITH HER BROTHER MONTRELL HOWARD . CM CALLED HIM AND HE INDICATED THAT THEY WANTED PT TO DC HOME TO THE HOUSE HE HAD BEEN AT WITH [facility] WITH HOSPICE SERVICES. ES REITERATED THAT HOSPICE WOULDN'T BE THERE 24/7 UPON DC AND THAT PT WOULD NEED 24/7 DIRECT CARES WITH ALL NEEDS. SON INDICATED THAT COULD BE PROVIDED.HE INDICATED THAT PT HAS A HOSPITAL BED AND HOME O2 ALREADY. PT HAD PD SERVICES THROUGH THE [facility] BUT THAT THEY HAD BEEN INCONSISTANT AT [employer]. ES CALLED HOSPICE TO SEE IF DC COULD BE FACILITATED THIS DAY. ES SPOKE WITH JUSTICE IN INTAKE AND SHE WAS CHECKING TO SEE IS DME COULD BE ARRANGED. JUSTICE TO CALL ES BACK. CM TO FOLLOW INDICATED WITH DC PLANNING.
--- NOTE | 2019-08-04 16:25 | NUR ---
CM CALLED TROY MOLINA WITH TRANSITIONS TEAM AT [facility] TO SEE IF PT WOULD QUALIFY FOR ADDITIONAL PD HRS. CM LEFT VM. CM CALLED AND SPOKE WITH JUSTICE AT HOSPICE WHO HAD SPOKEN WITH CON RUSH. FAMILY ARE NOW CONTEMPLATING HOME WITH HOSPICE OR HOUSE HOUSE ADMISSION. CM WORKING TO GET SCRIPT FOR BIPAP SETTING TO HOSPICE FOR THEM TO ORDER. CM TO FOLLOW INDICATED WITH DC PLANNING.
[2019-08-04 17:45] VITALS: BP 93/40
--- NOTE | 2019-08-04 18:23 | NUR ---
Pt restless most of the time. BP in the low 90's, lopressor held per order. pt had runs of vtach a couple of times, MD AWARE. Comfort measures, pt on BIPAP, 40%, WILL CONTINUE TO MONITOR.
[2019-08-04 21:30] VITALS: BP 118/79
[2019-08-05 01:08] VITALS: BP 105/45
[2019-08-05 05:25] VITALS: BP 102/56
[2019-08-05 07:31] VITALS: BP 110/59
--- NOTE | 2019-08-05 08:25 | NUR ---
Nutrition update: Following for any changes with nutrition plan of care, goals of care. Per latest EMR updates, it would appear aggressive nutrition measures not indicated at this time. Lots of discussion about possibly home w/ hospice or hospice admission w/ need to initiate comfort measures. Pt has been NPO since 07/29 (7 days) and today starts day 8 without nutrition. If hospice is chosen, no further nutrition recommendations appropriate at this time.
--- NOTE | 2019-08-05 09:39 | NUR ---
OSTOMY CARE urostomy pouch on 3 days, changed using precut convex reynaldo 1 08/17', stoma pink viable budded, clear yellow urine noted, peristomal skin intact, pouch connected to dep drainage, staff internist office based only informed, supplies at bs RECOMMENDATIONS CONT CONVEX POUCH REYNALDO, CHANGE Q 3-4 DAYS AND PRN
[2019-08-05 10:14] LABS: CALCIUM 8.6 mg/dL (8.5-10.1); CREATININE 2.7 mg/dL (0.7-1.3); POTASSIUM 4.4 mmol/L (3.5-5.1)
--- NOTE | 2019-08-05 10:29 | NUR ---
DR. Larkin aware of pt low urine output and generalized edema. No signs of pt distress. Family updated. will continue to monitor.
--- NOTE | 2019-08-05 14:48 | NUR ---
PT HAS BEEN ACCEPTED FOR ADMISSION TO [facility] ON WE ARE CURRENTLY AWAITING A BED TO BECOME AVAIABLE. CM HAD SPOKEN TO PT'S DTR CON AND SON TROY THEY ARE AWARE AND AGREEABLE. SHOULD A BED OPEN LATER ON THIS EVENING WE WOULD NEED TO USE [facility] FOR TRANSPORT PT NEEDS A BIPAP. THEY CAN BE CONTACTED AT . NURSE WILL NEED TO CONVEY ALL INFO FOR SIPATCH PT NEEDS BIPAP AVAPS 500 EPA 66 FI02 40% RATE 12. PT WILL HAVE NG TUBE IN PLACE. CM NOTIFIED TROY THAT HE OR [facility] WOULD NEED TO COMPLETE ADMISSION PAPERWORK AT THE HOUSE. FAX ORDERS TO CALL REPORT TO . CM TO FOLLOW INIDCATED WITH DC PLANNING.
[2019-08-05 15:40] VITALS: BP 106/38
[2019-08-05 17:39] VITALS: BP 102/71
--- NOTE | 2019-08-05 19:40 | NUR ---
PT AT 1830. Pt family and doctors notified.
[2019-08-05 22:09] LABS: ADENOVIRUS Negative (Negative)
== END 2019-08-05 22:39 | DRG 871 ==
LOC: ER 16:28 → ICU 18:56 → EROBS 18:56 → ICU 21:47 → 3W 08-03 11:37
PROVIDERS: Emergency Medicine; Internal Medicine; Pediatrics; Specialist; ADMIT Hospitalist
PROC: 5A09357 Assistance with Respiratory Ventilation, Less than 24 Consecutive Hours, Continuous Positive Airway Pressure (ICD-10-PCS; principal; 2019-07-25)
PROC: 5A09357 Assistance with Respiratory Ventilation, Less than 24 Consecutive Hours, Continuous Positive Airway Pressure (ICD-10-PCS; 2019-07-26)
PROC: 5A09357 Assistance with Respiratory Ventilation, Less than 24 Consecutive Hours, Continuous Positive Airway Pressure (ICD-10-PCS; 2019-07-27)
PROC: 5A09357 Assistance with Respiratory Ventilation, Less than 24 Consecutive Hours, Continuous Positive Airway Pressure (ICD-10-PCS; 2019-07-28)
PROC: 0DH673Z Insertion of Infusion Device into Stomach, Via Natural or Artificial Opening (ICD-10-PCS; 2019-07-29)
PROC: 5A09357 Assistance with Respiratory Ventilation, Less than 24 Consecutive Hours, Continuous Positive Airway Pressure (ICD-10-PCS; 2019-07-29)
PROC: 5A09357 Assistance with Respiratory Ventilation, Less than 24 Consecutive Hours, Continuous Positive Airway Pressure (ICD-10-PCS; 2019-07-30)
PROC: 5A09357 Assistance with Respiratory Ventilation, Less than 24 Consecutive Hours, Continuous Positive Airway Pressure (ICD-10-PCS; 2019-08-01)
PROC: 5A09357 Assistance with Respiratory Ventilation, Less than 24 Consecutive Hours, Continuous Positive Airway Pressure (ICD-10-PCS; 2019-08-02)
PROC: 5A09357 Assistance with Respiratory Ventilation, Less than 24 Consecutive Hours, Continuous Positive Airway Pressure (ICD-10-PCS; 2019-08-03)
PROC: 5A09357 Assistance with Respiratory Ventilation, Less than 24 Consecutive Hours, Continuous Positive Airway Pressure (ICD-10-PCS; 2019-08-04)
PROC: 5A09357 Assistance with Respiratory Ventilation, Less than 24 Consecutive Hours, Continuous Positive Airway Pressure (ICD-10-PCS; 2019-08-05)
DX: A41.9 Sepsis, unspecified organism (principal); J18.9 Pneumonia, unspecified organism; J96.21 Acute and chronic respiratory failure with hypoxia; J96.22 Acute and chronic respiratory failure with hypercapnia; G92 Toxic encephalopathy; I50.23 Acute on chronic systolic (congestive) heart failure; R65.21 Severe sepsis with septic shock; E43 Unspecified severe protein-calorie malnutrition; I13.0 Hypertensive heart and chronic kidney disease with heart failure and stage 1 through stage 4 chronic kidney disease, or unspecified chronic kidney disease; J44.1 Chronic obstructive pulmonary disease with (acute) exacerbation; J44.0 Chronic obstructive pulmonary disease with (acute) lower respiratory infection; K31.1 Adult hypertrophic pyloric stenosis; N17.9 Acute kidney failure, unspecified; K56.7 Ileus, unspecified; Z66 Do not resuscitate; N18.3 Chronic kidney disease, stage 3 (moderate); Z87.01 Personal history of pneumonia (recurrent); E78.5 Hyperlipidemia, unspecified; G40.909 Epilepsy, unspecified, not intractable, without status epilepticus; E03.9 Hypothyroidism, unspecified; K21.9 Gastro-esophageal reflux disease without esophagitis; I48.91 Unspecified atrial fibrillation; M06.9 Rheumatoid arthritis, unspecified; Z96.0 Presence of urogenital implants; F17.210 Nicotine dependence, cigarettes, uncomplicated; E11.22 Type 2 diabetes mellitus with diabetic chronic kidney disease; D64.9 Anemia, unspecified; K31.89 Other diseases of stomach and duodenum; Y95 Nosocomial condition; Z79.82 Long term (current) use of aspirin; Z90.89 Acquired absence of other organs; Z93.6 Other artificial openings of urinary tract status; Z79.01 Long term (current) use of anticoagulants; Z79.891 Long term (current) use of opiate analgesic; Z79.899 Other long term (current) drug therapy; Z88.8 Allergy status to other drugs, medicaments and biological substances; Z68.27 Body mass index [BMI] 27.0-27.9, adult
CPT/HCPCS: 10078; 10203; 10879